=== PATIENT | female | born 1975 | race Caucasian/White ===

== ENCOUNTER 2016-11-24 17:53 | Emergency (ER) | payer BC ==
[~2016-11-24] VITALS: Ht 157.5 cm; Wt 44.5 kg
[~2016-11-24 17:53] MED LIST: ESOM40CA PO; HYDR-552 PO
--- NOTE | 2016-11-24 18:58 | NUR ---
PT TRANSFERED TO ER BED 12. ASSUME PT CARE. HERE FOR DIFFUSE ABDOMINAL PAIN W/ N/V/D X 1 WEEK AND WORST TODAY. HX OF CERVICAL AND COLON CANCER. SBO AND HAD SX 3 WEEKS AGO. GOWNED AND PLACED ON MONITOR. AWAITING MD HANNAH.
[2016-11-24] MEDS ORDERED: IV NS 0.9% 1,000 ML BAG IV ONE (19:00)
--- NOTE | 2016-11-24 19:00 | NUR ---
BEADWORKER AT BEDSIDE FOR BLOOD DRAW.
[2016-11-24 19:05] LABS: BASOPHILS % (AUTO) 1.1 % (0.0-2.0); EOSINOPHILS # (AUTO) 0.2 /CMM (0.0-0.7); EOSINOPHILS % (AUTO) 6.6 % (0.0-6.0); HEMATOCRIT 35 % (33-45); HEMOGLOBIN 10.9 g/dL (11.5-14.8); LYMPHOCYTES # (AUTO) 1.4 /CMM (0.8-4.8); LYMPHOCYTES % (AUTO) 38.8 % (20.0-44.0); MEAN CORPUSCULAR HEMOGLOBIN 26 PG (26.0-33.0); MEAN CORPUSCULAR HGB CONC 31 g/dl (31.0-36.0); MEAN CORPUSCULAR VOLUME 83 fL (82-100); MONOCYTES # (AUTO) 0.2 /CMM (0.1-1.30); MONOCYTES % (AUTO) 6.6 % (2.0-12.0); NEUTROPHILS # (AUTO) 1.9 /CMM (1.8-8.9); NEUTROPHILS % (AUTO) 46.9 % (43.0-81.0); PLATELET COUNT (AUTO) 350 /CMM (150-450); RDW COEFFICIENT OF VARIATION 12.4 (11.5-15.0); RED BLOOD CELL COUNT(AUTO) 4.18 MIL/uL (4.0-5.2); WHITE BLOOD COUNT (AUTO) 3.7 K/uL (4.3-11.0)
--- NOTE | 2016-11-24 19:05 | NUR ---
DR MILLIGAN AT BEDSIDE FOR EVAL.
[2016-11-24 19:17] LABS: CALCIUM, SERUM 9.2 mg/dL (8.5-10.1); CREATININE 1.2 mg/dL (0.6-1.3); POTASSIUM 3.8 mmol/L (3.5-5.1)
[2016-11-24 19:22] LABS: INR 0.94 (0.87-1.13); PROTHROMBIN TIME 9.8 SECS (9.5-12.7)
[2016-11-24 19:23] LABS: ALBUMIN 3.9 g/dL (3.4-5.0); BILIRUBIN,DIRECT 0.1 mg/dL (0.0-0.2); BILIRUBIN,TOTAL 0.6 mg/dL (0.2-1.0)
[2016-11-24] MEDS ORDERED: ONDANSETRON HCL/PF 4 MG/2 ML VIAL IV ONE (19:30)
[2016-11-24] MEDS ORDERED: LOPERAMIDE HCL (2 MG CAP) 2 MG CAPSULE PO ONE ×2 (19:30→19:41)
[2016-11-24] MEDS ORDERED: ONDANSETRON HCL/PF 4 MG/2 ML VIAL ONE (19:41)
[2016-11-24] MEDS ORDERED: HYDROMORPHONE 1 MG/1 ML DISP.SYRIN ONE (20:05)
--- NOTE | 2016-11-24 20:20 | NUR ---
PT STATES STILL UNABLE TO PROVIDE URINE SAMPLE AT THIS TIME.
[2016-11-24] MEDS ORDERED: HYDROMORPHONE 1 MG/1 ML DISP.SYRIN IV ONE (20:30)
[2016-11-24] MEDS ORDERED: METOCLOPRAMIDE HCL 10 MG/2 ML VIAL ONE (20:34)
--- NOTE | 2016-11-24 20:36 | NUR ---
Fide mejia in ED - 11/24/16 at 2107 by EDITH PT IS STILL C/O NAUSEA. DR MILLIGAN MADE AWARE. REGLAN 5MG IVP ORDERED. CARRIED OUT.
--- NOTE | 2016-11-24 20:50 | NUR ---
PT OT RADIOLOGY FOR ABDOMINAL CT SCAN VIA [facility].
[2016-11-24] MEDS ORDERED: METOCLOPRAMIDE HCL 10 MG/2 ML VIAL IV ONE (21:00)
[2016-11-24 21:41] LABS: APPEARANCE,URINE Clear (CLEAR); BILIRUBIN,URINE Negative (NEGATIVE); BLOOD, URINE Negative Ery/uL (NEGATIVE); COLOR,URINE Yellow (YELLOW); KETONES,URINE Negative (NEGATIVE); LEUKOCYTE ESTERASE ,URINE Trace (NEGATIVE); NITRITE, URINE Negative (NEGATIVE); PH,URINE 5.5 (5.0-8.0); PROTEIN,URINE Negative (NEGATIVE); UGLUCOSE Negative (NEGATIVE); UROBILINOGEN,URINE 0.2 EU/dL (0.2)
[2016-11-24 21:56] LABS: BACTERIA,URINE Few /HPF (None Seen); RBC,URINE 0-2 /HPF (0-2); SQUAMOUS EPITHELIAL CELL,UR Few /HPF (None Seen); WBC,URINE 2-3/HPF /HPF (0-3)
[2016-11-24 21:57] LABS: MUCUS,URINE Few /LPF (None Seen); URINE AMORPHOUS URATE Few /HPF (None Seen)
--- NOTE | 2016-11-24 21:59 | NUR ---
Patient discharged to home in stable condition. Written and verbal after care instructions given. Patient verbalizes understanding of instruction.IV removed. Catheter intact and site benign. Pressure and 4x4 applied to site. No bleeding noted.
[2016-11-24 22:00] VITALS: BP 98/62
== END 2016-11-24 22:01 | disposition home or self-care (01) ==
LOC: ER 17:59
DX: K56.7 Ileus, unspecified (principal); E86.0 Dehydration; D64.9 Anemia, unspecified; Z85.038 Personal history of other malignant neoplasm of large intestine; Z85.41 Personal history of malignant neoplasm of cervix uteri; Z90.49 Acquired absence of other specified parts of digestive tract; Z90.710 Acquired absence of both cervix and uterus
CPT/HCPCS: 36415; 72128-TC; 80048-TC; 80076-TC; 81000-TC; 83690-TC; 85025-TC; 85730-TC; A4606; J1170; J2405; J7030; Z7610

== ENCOUNTER 2017-07-24 17:27 | Inpatient (IN) | payer BC, MEDICAID ==
[~2017-07-24] VITALS: Ht 157.5 cm; Wt 54.4 kg
--- NOTE | 2017-07-24 18:00 | NUR ---
42 YO FEMALE BB SELF. PATIENT IS ALERT AND ORIENTED X 3, C/O LEFT LQ PAIN X3 DAYS. PATIENT AMBULATED TO ER BED WITH STEADY GAIT, SKIN WARM AND DRY, RESP EVEN AND UNLABORED. PATIENT GOWNED,PLACED ON MATERIAL PLANNER, AWAITING ORDERS FROM PROVIDER
[2017-07-24] MEDS ORDERED: MORPHINE SULFATE INJ 4 MG/ML DISP.SYRIN ONE ×2 (18:24→21:30)
[2017-07-24] MEDS ORDERED: ONDANSETRON HCL/PF 4 MG/2 ML VIAL ONE (18:25)
[2017-07-24] MEDS ORDERED: MORPHINE SULFATE INJ 2 MG/ML DISP.SYRIN IV ONE ×2 (18:30→21:30)
[2017-07-24] MEDS ORDERED: ONDANSETRON 4 MG TAB.RAPDIS PO ONE (18:30)
[2017-07-24] MEDS ORDERED: IV NS 0.9% 1,000 ML BAG IV ONE (18:30)
[2017-07-24 18:52] LABS: BASOPHILS # (AUTO) 0.2 /CMM (0.0-0.2); BASOPHILS % (AUTO) 3.1 % (0.0-2.0); EOSINOPHILS % (AUTO) 1.3 % (0.0-6.0); HEMATOCRIT 35 % (33-45); HEMOGLOBIN 11.4 g/dL (11.5-14.8); LYMPHOCYTES # (AUTO) 2.1 /CMM (0.8-4.8); LYMPHOCYTES % (AUTO) 38.1 % (20.0-44.0); MEAN CORPUSCULAR HGB CONC 33 g/dl (31.0-36.0); MEAN CORPUSCULAR VOLUME 82 fL (82-100); MONOCYTES # (AUTO) 0.3 /CMM (0.1-1.30); MONOCYTES % (AUTO) 5.9 % (2.0-12.0); NEUTROPHILS # (AUTO) 2.9 /CMM (1.8-8.9); NEUTROPHILS % (AUTO) 51.6 % (43.0-81.0); PLATELET COUNT (AUTO) 251 /CMM (150-450); RDW COEFFICIENT OF VARIATION 12.6 (11.5-15.0); RED BLOOD CELL COUNT(AUTO) 4.21 MIL/uL (4.0-5.2); WHITE BLOOD COUNT (AUTO) 5.6 K/uL (4.3-11.0)
[2017-07-24 19:21] LABS: ALBUMIN 3.3 g/dL (3.4-5.0); BILIRUBIN,DIRECT 0.1 mg/dL (0.0-0.2); BILIRUBIN,TOTAL 0.4 mg/dL (0.2-1.0); POTASSIUM 3.8 mmol/L (3.5-5.1); TOTAL PROTEIN, SERUM 7.3 g/dL (6.4-8.2)
[2017-07-24] MEDS ORDERED: IOHEXOL-300 100 ML VIAL IV ONE (19:55)
[2017-07-24] MEDS ORDERED: IV NS 0.9% 250 ML IV ONE (19:55)
--- NOTE | 2017-07-24 20:23 | NUR ---
PT TO CT
[2017-07-24 20:36] LABS: APPEARANCE,URINE CLEAR (CLEAR); BILIRUBIN,URINE NEGATIVE (NEGATIVE); BLOOD, URINE NEGATIVE Ery/uL (NEGATIVE); COLOR,URINE YELLOW (YELLOW); KETONES,URINE NEGATIVE (NEGATIVE); LEUKOCYTE ESTERASE ,URINE NEGATIVE (NEGATIVE); NITRITE, URINE NEGATIVE (NEGATIVE); PH,URINE 5.5 (5.0-8.0); PROTEIN,URINE NEGATIVE (NEGATIVE); UGLUCOSE NEGATIVE (NEGATIVE); UROBILINOGEN,URINE 0.2 EU/dL (0.2)
--- NOTE | 2017-07-24 22:22 | NUR ---
Patient is resting comfortably in bed. VSS. No S/S of distress noted in pt.
--- NOTE | 2017-07-24 23:39 | NUR ---
REPORT GIVEN TO PRIYA JIN FOR NIKITA.
[2017-07-25 00:05] VITALS: BP 119/73
--- NOTE | 2017-07-25 00:05 | NUR ---
MS RN ADMITTING NOTES: ADMITTED A 42 YEAR OLD FEMALE PATIENT WHO WAS BROUGHT TO ER BY FOR SEVERE LEFT SIDED ABDOMINAL PAIN, WHICH SHE STATES SHE HAS BEEN EXPERIENCING FOR 3 DAYS ALREADY. PATIENT WAS DIAGNOSED WITH ILEUS FROM THE CT ABDOMEN AND PELVIS. PATIENT WAS BROUGHT TO MS FLOOR VIA GURGURJIT, AOX4, ON ROOM AIR, BREATHING EVEN AND UNLABORED. APPEARS CALM, BUT STATES THAT SHE HAS SHARP, "PULLING" PAIN OVER UPPER AND LOWER ANTERIOR LEFT SIDE OF ABDOMEN, WHICH INTERMITTENTLY COMES AND GOES, AND RADIATES TO HER LEFT FLANK, NOW SCALED AT 8-9/10. NOTED HYPOACTIVE BOWEL SOUNDS. PER PATIENT, SHE IS ABLE TO PASS GAS AND HER LAST BM WAS 07/24/2017 AM, AND ACCDG TO HER, IT WAS SOFT TO FORMED. ABDOMEN IS TENDER, SOFT AND NON DISTENDED. NOTED PATIENT TO BE GUARDING OVER HER LEFT ABDOMEN. DENIES N/V. PIV OVER RAC G 20 INTACT AND PATENT TO FLUSH. PROVIDED FOR COMFORT AND SAFETY. ADMITTING CARE DONE, PROVIDED FOR COMFORT AND SAFETY, BED IN LOWEST AND LOCKED POSITION, SIDERAILS UP X 3, CALL LIGHT WITHIN REACH. WILL CONT TO MONITOR.
[2017-07-25] MEDS ORDERED: ALPR0.25 PO (00:29)
[2017-07-25] MEDS ORDERED: ACETAMINOPHEN 325 MG TABLET PO PRN (00:30)
[2017-07-25] MEDS ORDERED: Z GUARD REMEDY 2 OZ OINT TP PRN (00:30)
[2017-07-25] MEDS: METOCLOPRAMIDE HCL 10 MG/2 ML VIAL IV SCH ×4 (00:30→12:51)
--- NOTE | 2017-07-25 00:30 | NUR ---
RN NOTES: NGT TO LIS WAS ORDERED FOR PATIENT, HOWEVER, PATIENT REFUSED. RISKS AND BENEFITS EXPLAINED TO PATIENT, HOWEVER, SHE IS STILL REFUSING. KAYKAY URBINA INFORMED.
--- NOTE | 2017-07-25 00:40 | NUR ---
RN NOTES: CARLITOS COHEN ARMATURE REPAIRER AT BEDSIDE TO ASSESS PATIENT.
[2017-07-25] MEDS: HYDROMORPHONE INJ 2 MG/ML DISP.SYRIN IV PRN ×7 (00:44→21:16)
[2017-07-25] MEDS: PANTOPRAZOLE 40 MG VIAL IV SCH ×2 (00:49→08:12)
[2017-07-25] MEDS: IV D5/0.45 NACL 1,000 ML IV SCH ×2 (00:49→09:39)
[2017-07-25] MEDS ORDERED: ESTR-7 PO (01:13)
[2017-07-25] MEDS ORDERED: LORAZEPAM INJ 2 MG/ML VIAL IV PRN (01:30)
--- NOTE | 2017-07-25 01:34 | NUR ---
RN NOTES: METOCLOPRAMIDE IV NOT AVAILABLE IN FLOOR, OR ON ANY OTHER FLOOR, ALSO CHECKED WITH NURSING SUP, NO METOCLOPRAMIDE AVAILABLE TONIGHT, INFORMED CARLITOS COHEN BUSINESS SYSTEMS DEVELOPER. PER BUSINESS SYSTEMS DEVELOPER, REGLAN WAS ORDERED TO HELP WITH GASTRIC MOTILITY. ZOFRAN 4 MG IV PRN Q 6 HRS ADDED TO ORDERS. NOTED AND CARRIED OUT.
[2017-07-25 04:08] VITALS: BP 104/73
--- NOTE | 2017-07-25 04:08 | NUR ---
RN NOTES: PATIENT COMPLAINED OF 8/10 THROBBING PAIN OVER LEFT SIDE OF ABDOMEN. ADMINISTERED DILAUDID 1 MG IV. WILL CONT TO MONITOR.
--- NOTE | 2017-07-25 06:53 | NUR ---
MS RN CLOSING NOTES: PATIENT IN BED, AOX4, ON ROOM AIR, BREATHING EVEN AND UNLABORED. APPEARS CALM, BUT STILL COMPLAINS OF 7/10 PAIN OVER LEFT SIDE OF ABDOMEN. NO N/V NOTED THROUGH SHIFT. PIV OVER RAC G 20 INTACT AND PATENT, INFUSING WELL WITH D51/2 NS RUNNING AT 100 ML/HR. PROVIDED FOR COMFORT AND SAFETY. BED IN LOWEST AND LOCKED POSITION, SIDERAILS UP X3, CALL LIGHT WITHIN REACH. MAINTAINED ON NPO. WILL ENDORSE TO AM RN FOR NIKITA.
--- NOTE | 2017-07-25 07:25 | NUR ---
RN OPEN NOTES RECEIVED REPORT FROM RESEARCH PROGRAM MANAGER RN. PATIENT IS IN BED, ALERT AND ORIENTED TO NAME, PLACE AND TIME. NO SIGNS AND SYMPTOMS OF DISTRESS. LLQ PAID WITH HEADACHE. BED IN LOW POSITION, LOCKED AND TWO SIDE RAILS ARE UP. CALL LIGHT WITHIN REACH FOR SAFETY. WILL CONTINUE TO MONITOR AND ASSESS PATIENT
[2017-07-25 08:00] VITALS: BP 108/68
--- NOTE | 2017-07-25 08:50 | NUR ---
SPOKE WITH MANUFACTURING SYSTEMS ENGINEER GISELLE REGARDING SUPPOSITORY FOR HEADACHE. PER MANUFACTURING SYSTEMS ENGINEER, HOLD OFF FOR NOW. APPLIED ICE ON FOREHEAD ONLY
[2017-07-25 11:47] LABS: BASOPHILS % (AUTO) 0.6 % (0.0-2.0); EOSINOPHILS % (AUTO) 1.5 % (0.0-6.0); HEMATOCRIT 34 % (33-45); LYMPHOCYTES # (AUTO) 1.6 /CMM (0.8-4.8); LYMPHOCYTES % (AUTO) 39.9 % (20.0-44.0); MEAN CORPUSCULAR HGB CONC 32 g/dl (31.0-36.0); MEAN CORPUSCULAR VOLUME 86 fL (82-100); MONOCYTES # (AUTO) 0.2 /CMM (0.1-1.30); PLATELET COUNT (AUTO) 227 /CMM (150-450); RDW COEFFICIENT OF VARIATION 14.1 (11.5-15.0); RED BLOOD CELL COUNT(AUTO) 3.98 MIL/uL (4.0-5.2); WHITE BLOOD COUNT (AUTO) 3.9 K/uL (4.3-11.0)
[2017-07-25 11:54] LABS: CALCIUM, SERUM 8.4 mg/dL (8.5-10.1)
[2017-07-25] MEDS: METRONIDAZOLE 500MG/ NS 100ML 500 MG in PREMIX 1 EA IV SCH ×2 (12:40→21:15)
[2017-07-25] MEDS: LEVOFLOXACIN 750 MG /D5W 150ML 750 MG in PREMIX 1 EA IV SCH (13:51)
[2017-07-25] MEDS: ONDANSETRON HCL/PF 4 MG/2 ML VIAL IV PRN ×2 (14:29→23:15)
[2017-07-25] MEDS ORDERED: NA PHOS,M-B/NA PHOS,DI-BA 1 EA ENEMA RC ONE (16:00)
[2017-07-25 16:03] VITALS: BP 104/71
[2017-07-25] MEDS: ALPRAZOLAM 0.25 MG TABLET PO PRN (16:13)
--- NOTE | 2017-07-25 19:11 | NUR ---
RN CLOSING NOTES PATIENT IS IN BED, AWAKE AND ALERT TO NAME, PLACE AND TIME. ALL PATIENT NEEDS ANTICIPATED AND ATTENDED FOR. BED IN LOW POSITION, LOCKED AND TWO SIDE RAILS ARE UP. CALL LIGHT WITHIN REACH FOR SAFETY. NO NEW CHANGES DURING THE SHIFT. NO SIGNS AND SYMPTOMS OF DISTRESS. WILL ENDORSE TO FAST FOOD RESTAURANT MANAGER NURSE
[2017-07-25 20:00] VITALS: BP 100/65
[2017-07-26] MEDS: IV D5/0.45 NACL 1,000 ML IV SCH ×3 (00:11→23:44)
[2017-07-26] MEDS: HYDROMORPHONE INJ 2 MG/ML DISP.SYRIN IV PRN ×5 (00:11→16:30)
[2017-07-26] MEDS: METOCLOPRAMIDE HCL 10 MG/2 ML VIAL IV SCH ×5 (00:22→23:44)
[2017-07-26] MEDS: METRONIDAZOLE 500MG/ NS 100ML 500 MG in PREMIX 1 EA IV SCH ×3 (05:13→21:09)
[2017-07-26] MEDS: ONDANSETRON HCL/PF 4 MG/2 ML VIAL IV PRN (05:15)
[2017-07-26 06:06] LABS: BASOPHILS % (AUTO) 0.9 % (0.0-2.0); EOSINOPHILS % (AUTO) 1.7 % (0.0-6.0); HEMATOCRIT 30 % (33-45); HEMOGLOBIN 9.7 g/dL (11.5-14.8); LYMPHOCYTES # (AUTO) 1.2 /CMM (0.8-4.8); LYMPHOCYTES % (AUTO) 42.8 % (20.0-44.0); MEAN CORPUSCULAR HGB CONC 33 g/dl (31.0-36.0); MEAN CORPUSCULAR VOLUME 83 fL (82-100); MONOCYTES # (AUTO) 0.3 /CMM (0.1-1.30); MONOCYTES % (AUTO) 10.6 % (2.0-12.0); NEUTROPHILS # (AUTO) 1.2 /CMM (1.8-8.9); PLATELET COUNT (AUTO) 208 /CMM (150-450); RDW COEFFICIENT OF VARIATION 13.5 (11.5-15.0); RED BLOOD CELL COUNT(AUTO) 3.55 MIL/uL (4.0-5.2); WHITE BLOOD COUNT (AUTO) 2.8 K/uL (4.3-11.0)
--- NOTE | 2017-07-26 06:10 | NUR ---
MS RN NOTES AWAKE & RESPONSIVE. NOT IN ANY DISTRESS. NO SOB NOTED. DENIES ANY PAIN OR DISCOMFORT AT THIS TIME. WITH IVF INFUSING WELL. MONITORED ACCORDINGLY. CALL LIGHT WITHIN REACH. BED IN LOWEST POSITION. SR UP X 2 FOR SAFETY. WILL ENDORSE TO NEXT SHIFT.
[2017-07-26 06:23] LABS: CALCIUM, SERUM 8.2 mg/dL (8.5-10.1); CREATININE 0.9 mg/dL (0.6-1.3); MAGNESIUM 1.7 mg/dL (1.8-2.4); PHOSPHORUS 4.5 mg/dL (2.5-4.9); POTASSIUM 3.7 mmol/L (3.5-5.1)
[2017-07-26 06:29] LABS: THYROID STIMULATING HORMONE 3.25 uIU/mL (0.358-3.74)
--- NOTE | 2017-07-26 07:25 | NUR ---
RN OPEN NOTES RECEIVED REPORT FROM CLINICAL ENGINEERING MANAGER NURSE. PATIENT IS IN BED. PATIENT IS ALERT AND ORIENTED TO NAME, PLACE AND TIME. NO SIGNS AND SYMPTOMS OF DISTRESS. PAIN 7/10 ABDOMINAL. BED IN LOW POSITION, LOCKED AND TWO SIDE RAILS ARE UP. CALL LIGHT WITHIN REACH. WILL CONTINUE TO ASSESS AND MONITOR PATIENT
[2017-07-26 08:00] VITALS: BP 105/69
[2017-07-26] MEDS: PANTOPRAZOLE 40 MG VIAL IV SCH (08:06)
[2017-07-26] MEDS: DOCUSATE SODIUM 100 MG CAPSULE PO SCH ×2 (10:52→16:29)
[2017-07-26] MEDS: LEVOFLOXACIN 750 MG /D5W 150ML 750 MG in PREMIX 1 EA IV SCH (10:59)
[2017-07-26] MEDS ORDERED: MAGNESIUM OXIDE 400 MG TABLET PO ONE (11:00)
[2017-07-26] MEDS ORDERED: BISACODYL SUPP (10 MG) 10 MG/SUPP.RECT SUPP.RECT RC ONE (11:00)
[2017-07-26 16:00] VITALS: BP 111/74
[2017-07-26] MEDS ORDERED: HYDROCODONE/APAP 5/325MG 1 EACH TABLET PO PRN (18:00)
--- NOTE | 2017-07-26 18:52 | NUR ---
RN CLOSING NOTES PATIENT IS IN BED, AWAKE AND ALERT TO NAME, PLACE AND TIME. ALL PATIENT NEEDS ANTICIPATED AND ATTENDED FOR. BED IN LOW POSITION, LOCKED AND TWO SIDE RAILS ARE UP. CALL LIGHT WITHIN REACH FOR SAFETY. NO NEW CHANGES DURING THE SHIFT. NO SIGNS AND SYMPTOMS OF DISTRESS. WILL ENDORSE TO COUNTRY MANAGER NURSE
--- NOTE | 2017-07-26 19:30 | NUR ---
MS RN NOTE: PATIENT RESTING IN BED, NO ACUTE DISTRESS NOTED. BREATHING EVEN AND UNLABORED, NO SOB NOTED. IV TO RAC IN PLACE, INFUSING D5 1/2 NS AT 75ML/HR. BED LOCKED AND IN LOWEST POSITION, CALL LIGHT IN REACH. WILL CONTINUE TO MONITOR.
[2017-07-26] MEDS: HYDROCODONE/APAP 10/325MG 1 EA TABLET PO PRN (20:02)
--- NOTE | 2017-07-26 20:15 | NUR ---
MS RN NOTE: PATIENT COMPLAINS OF ABD PAIN 12/28, NORCO 10/325MG 1 TAB ORAL GIVEN PER MD ORDER. WILL CONTINUE TO MONITOR.
[2017-07-26] MEDS: ALPRAZOLAM 0.25 MG TABLET PO PRN (21:10)
--- NOTE | 2017-07-26 23:50 | NUR ---
MS RN NOTE: PATIENT COMPLAINS OF ABD PAIN 10/27, NORCO 5/325MG 1 TAB ORAL GIVEN PER MD ORDER. WILL CONTINUE TO MONITOR.
[2017-07-27] MEDS: HYDROCODONE/APAP 10/325MG 1 EA TABLET PO PRN (03:14)
--- NOTE | 2017-07-27 03:20 | NUR ---
MS RN NOTE: PATIENT COMPLAINS OF ABD PAIN 12/28, NORCO 10/325MG 1 TAB ORAL GIVEN PER MD ORDER. WILL CONTINUE TO MONITOR.
[2017-07-27] MEDS: METRONIDAZOLE 500MG/ NS 100ML 500 MG in PREMIX 1 EA IV SCH ×3 (05:42→21:13)
--- NOTE | 2017-07-27 06:15 | NUR ---
MS RN NOTE: PATIENT RESTING IN BED, NO ACUTE DISTRESS NOTED. BREATHING EVEN AND UNLABORED, NO SOB NOTED. IV TO RAC IN PLACE, INFUSING D5 1/2 NS AT 75ML/HR. BED LOCKED AND IN LOWEST POSITION, CALL LIGHT IN REACH. WILL ENDORSE TO DAY NURSE TO CONTINUE WITH PLAN OF CARE.
[2017-07-27] MEDS: METOCLOPRAMIDE HCL 10 MG/2 ML VIAL IV SCH ×4 (06:30→23:49)
--- NOTE | 2017-07-27 07:30 | NUR ---
MS/RN Patient received Patient received from power and recovery shift engineer. A/OX4, vital signs within normal range, complaining of pain. Pharmacy called to snitch dilaudid to other medication as out of stock. Per Yariel, will change to fentanyl. Call light within reach, will continue to monitor and ensure safety.
[2017-07-27 07:56] VITALS: BP 92/60
[2017-07-27 08:00] VITALS: BP 92/64
--- NOTE | 2017-07-27 08:00 | NUR ---
MS/RN Fentanyl Dilaudid changed to fentanyl, first dose administered for abdominal pain 11/27, will monitor effectiveness.
[2017-07-27] MEDS: DOCUSATE SODIUM 100 MG CAPSULE PO SCH ×2 (08:01→18:06)
[2017-07-27] MEDS: PANTOPRAZOLE 40 MG VIAL IV SCH (08:01)
[2017-07-27] MEDS: FENTANYL PF 100MCG/2ML AMPUL IV PRN ×5 (08:01→21:13)
--- NOTE | 2017-07-27 10:50 | NUR ---
MS/RN S/B David Mas Seen by David Mas - labs ordered for this morning to recheck WBC.
[2017-07-27] MEDS ORDERED: BISACODYL SUPP (10 MG) 10 MG/SUPP.RECT SUPP.RECT RC ONE (11:00)
[2017-07-27] MEDS: LEVOFLOXACIN 750 MG /D5W 150ML 750 MG in PREMIX 1 EA IV SCH (11:28)
--- NOTE | 2017-07-27 11:30 | NUR ---
MS/RN Fentanyl Fentanyl 60mcg administered for abdominal pain, scale 8/10.
[2017-07-27 12:08] LABS: BASOPHILS # (AUTO) 0.1 /CMM (0.0-0.2); BASOPHILS % (AUTO) 2.4 % (0.0-2.0); EOSINOPHILS % (AUTO) 2.3 % (0.0-6.0); HEMATOCRIT 30 % (33-45); LYMPHOCYTES # (AUTO) 1.2 /CMM (0.8-4.8); LYMPHOCYTES % (AUTO) 34.6 % (20.0-44.0); MEAN CORPUSCULAR HGB CONC 33 g/dl (31.0-36.0); MEAN CORPUSCULAR VOLUME 83 fL (82-100); MONOCYTES # (AUTO) 0.3 /CMM (0.1-1.30); MONOCYTES % (AUTO) 8.3 % (2.0-12.0); NEUTROPHILS # (AUTO) 1.8 /CMM (1.8-8.9); NEUTROPHILS % (AUTO) 52.4 % (43.0-81.0); PLATELET COUNT (AUTO) 241 /CMM (150-450); RED BLOOD CELL COUNT(AUTO) 3.61 MIL/uL (4.0-5.2); WHITE BLOOD COUNT (AUTO) 3.5 K/uL (4.3-11.0)
[2017-07-27 12:19] LABS: CALCIUM, SERUM 8.1 mg/dL (8.5-10.1); CREATININE 1.1 mg/dL (0.6-1.3); POTASSIUM 3.6 mmol/L (3.5-5.1)
[2017-07-27] MEDS: ALPRAZOLAM 0.25 MG TABLET PO PRN ×2 (13:16→22:12)
[2017-07-27 16:00] VITALS: BP 103/70
--- NOTE | 2017-07-27 18:00 | NUR ---
MS/RN Pain Complaining of 8/10 abdominal pain. Fentanyl administered, will monitor effectiveness.
[2017-07-27] MEDS: IV D5/0.45 NACL 1,000 ML IV PRN (18:06)
--- NOTE | 2017-07-27 18:15 | NUR ---
MS/RN End note Patient remains in stable condition, with pain medication being administered every 3 hours. Vital signs stable and within normal range for patient. All needs attended, call light within reach. Will endorse to shift supervisor film processing.
[2017-07-27 20:00] VITALS: BP 108/71
--- NOTE | 2017-07-27 21:15 | NUR ---
MS RN NOTE: PATIENT COMPLAINS OF ABD PAIN 12/28, FENTANYL 60MCG IV GIVEN PER MD ORDER. WILL CONTINUE TO MONITOR.
--- NOTE | 2017-07-27 22:20 | NUR ---
MS RN NOTE: PATIENT COMPLAINS OF ANXIETY, XANAX 0.25MG ORAL GIVEN PER MD ORDER WILL CONTINUE TO MONITOR.
[2017-07-28] MEDS: FENTANYL PF 100MCG/2ML AMPUL IV PRN ×5 (00:29→14:58)
--- NOTE | 2017-07-28 00:45 | NUR ---
MS RN NOTE: PATIENT COMPLAINS OF ABD PAIN 12/28, FENTANYL 60MCG IV GIVEN PER MD ORDER. WILL CONTINUE TO MONITOR.
--- NOTE | 2017-07-28 04:15 | NUR ---
MS RN NOTE: PATIENT COMPLAINS OF ABD PAIN 12/28, FENTANYL 60MCG IV GIVEN PER MD ORDER. WILL CONTINUE TO MONITOR.
[2017-07-28] MEDS: METRONIDAZOLE 500MG/ NS 100ML 500 MG in PREMIX 1 EA IV SCH (04:19)
--- NOTE | 2017-07-28 06:10 | NUR ---
MS RN NOTE: PATIENT RESTING IN BED, NO ACUTE DISTRESS NOTED. BREATHING EVEN AND UNLABORED, NO SOB NOTED. IV TO RAC IN PLACE. BED LOCKED AND IN LOWEST POSITION, CALL LIGHT IN REACH. WILL ENDORSE TO DAY NURSE TO CONTINUE WITH PLAN OF CARE. Addendum: 07/28/17 at 0659 by OSCAR ESCALANTE RN IV TO RAC IN PLACE, INFUSING D5 1/2 NS AT 75ML/HR.
[2017-07-28] MEDS: METOCLOPRAMIDE HCL 10 MG/2 ML VIAL IV SCH (06:12)
[2017-07-28 06:46] LABS: BASOPHILS % (AUTO) 0.5 % (0.0-2.0); EOSINOPHILS % (AUTO) 2.2 % (0.0-6.0); HEMATOCRIT 30 % (33-45); HEMOGLOBIN 9.9 g/dL (11.5-14.8); LYMPHOCYTES # (AUTO) 1.5 /CMM (0.8-4.8); LYMPHOCYTES % (AUTO) 35.7 % (20.0-44.0); MEAN CORPUSCULAR HGB CONC 34 g/dl (31.0-36.0); MEAN CORPUSCULAR VOLUME 83 fL (82-100); MONOCYTES # (AUTO) 0.4 /CMM (0.1-1.30); NEUTROPHILS # (AUTO) 2.3 /CMM (1.8-8.9); NEUTROPHILS % (AUTO) 52.6 % (43.0-81.0); PLATELET COUNT (AUTO) 237 /CMM (150-450); RDW COEFFICIENT OF VARIATION 13.8 (11.5-15.0); RED BLOOD CELL COUNT(AUTO) 3.57 MIL/uL (4.0-5.2); WHITE BLOOD COUNT (AUTO) 4.3 K/uL (4.3-11.0)
[2017-07-28 08:00] VITALS: BP 103/66
[2017-07-28] MEDS: DOCUSATE SODIUM 100 MG CAPSULE PO SCH ×2 (08:00→17:00)
[2017-07-28] MEDS: PANTOPRAZOLE 40 MG VIAL IV SCH (08:00)
--- NOTE | 2017-07-28 08:00 | NUR ---
MS RN NOTES PATIENT IN BED RESTING NO SOB OR ACUTE DISTRESS NOTED. PATIENT ALERT, ORIENTED X3. PERIPHERAL IV INTACT PATENT. BED IN LOW LOCKED POSITION. CALL LIGHT WITHIN REACH. WILL CONTINUE TO MONITOR.
[2017-07-28] MEDS: ALPRAZOLAM 0.25 MG TABLET PO PRN (09:02)
[2017-07-28] MEDS: IV D5/0.45 NACL 1,000 ML IV PRN (09:28)
[2017-07-28] MEDS ORDERED: METOCLOPRAMIDE HCL 10 MG TABLET PO SCH (12:00)
[2017-07-28] MEDS ORDERED: LEVOFLOXACIN (750 MG) 750 MG TABLET PO SCH (12:00)
--- NOTE | 2017-07-28 12:00 | NUR ---
MS RN NOTES PATIENT SEEN AND EVALUATED BY DR. ZIMMERMAN ORDERS NOTED AND CARRIED OUT.
[2017-07-28] MEDS ORDERED: METRONIDAZOLE 500 MG TABLET PO SCH (13:00)
[2017-07-28] MEDS: HYDROCODONE/APAP 10/325MG 1 EA TABLET PO PRN (13:13)
[2017-07-28 15:44] VITALS: BP 103/66
--- NOTE | 2017-07-28 16:30 | NUR ---
MS RN NOTES CALLED DR. ZIMMERMAN ORDERS OBTAINED TO DISCHARGE PATIENT PER PATIENTS REQUEST SHE UNABLE TO WAIT ANY LONGER. PER DR. ZIMMERMAN OK TO DISCHARGE PATIENT STABLE. PRESCRIPTION PROVIDED FROM MORNING.
--- NOTE | 2017-07-28 17:00 | NUR ---
MS RN NOTES PATIENT DISCHARGED HOME WITH IN STABLE CONDITION. MD AWARE OF ABNORMAL LABS. NO SOB OR ACUTE DISTRESS NOTED. PATIENT STATES SHE HAS PAIN MEDICATION AT HOME TO CONTROL HER PAIN. DISCHARGE TEACHING PROVIDED, VERBALIZED UNDERSTANDING. PRESCRIPTION GIVEN TO PATIENT ALSO FAXED TO HER PHARMACY. EDUCATION PROVIDED TO PATIENT AND ABOUT MEDICATIONS. PERIPHERAL IV REMOVED. ID BAND ALSO REMOVED. ALL BELONGINGS ACCOUNTED FOR, BELONGING LIST SIGNED. PATIENT ESCORTED TO CAR BY CLINICAL LABORATORY AIDE. LEFT WITH .
== END 2017-07-28 17:00 | disposition home or self-care (01) | DRG 248 ==
LOC: ER 17:28 → MEDSG2 23:29
PROVIDERS: ADMIT Registered Nurse; ATTEND Registered Nurse
DX: A04.9 Bacterial intestinal infection, unspecified (principal); E44.1 Mild protein-calorie malnutrition; K56.7 Ileus, unspecified; N13.30 Unspecified hydronephrosis; E88.09 Other disorders of plasma-protein metabolism, not elsewhere classified; D72.819 Decreased white blood cell count, unspecified; E83.42 Hypomagnesemia; K21.9 Gastro-esophageal reflux disease without esophagitis; Z90.49 Acquired absence of other specified parts of digestive tract; Z85.41 Personal history of malignant neoplasm of cervix uteri; Z90.710 Acquired absence of both cervix and uterus; Z92.21 Personal history of antineoplastic chemotherapy; Z92.3 Personal history of irradiation; D63.8 Anemia in other chronic diseases classified elsewhere; Z85.038 Personal history of other malignant neoplasm of large intestine; K59.00 Constipation, unspecified; F41.9 Anxiety disorder, unspecified; Z68.21 Body mass index [BMI] 21.0-21.9, adult
CPT/HCPCS: 36415; 80048-TC; 80061-TC; 80076-TC; 81000-TC; 83605-TC; 83690-TC; 83735-TC; 84100-TC; 84443-TC; 84703-TC; 85025-TC; 87081-TC; A4216; A4606; C9113; J1170; J1956; J2270; J2405; J3010; J3490; J7030; J7050; J8597; Q9967; Z7610

== ENCOUNTER 2019-02-27 21:22 | Emergency (ER) | payer MEDICAID, OTHER ==
[~2019-02-27] VITALS: Ht 154.9 cm; Wt 49.9 kg
[~2019-02-27 21:22] MED LIST changes: +ALPR0.25 PO; +ESTR-7 PO; +HYDR-4384 PO; -HYDR-552 PO
--- NOTE | 2019-02-27 21:30 | NUR ---
PT AAOX4. PT HAYDEE WHILE GROCERY SHOPPING SHE HAD AN ANXIETY ATTACK. C/O "I CANT FEEL MY LEGS AND HANDS, THEIR TINGLING". PT VERY ANXIOUS. VSS. LLQ ABD PAIN 10/10 NON RADIATING. PT PLACED ON BUILDING MAINTENANCE WORKER AND PULSE OX. AWAITING MD FOR EVAL.
[2019-02-27] MEDS ORDERED: LORAZEPAM INJ 2 MG/ML VIAL ONE (22:23)
[2019-02-27] MEDS ORDERED: LORAZEPAM INJ 2 MG/ML VIAL IM ONE (22:30)
--- NOTE | 2019-02-27 22:38 | NUR ---
Patient is resting comfortably in bed speaking on the phone. Easily aroused. VSS. no acute distress.
--- NOTE | 2019-02-27 23:19 | NUR ---
Patient discharged to home in stable condition. Written and verbal after care instructions given. Patient verbalizes understanding of instruction. pt ambulatory with a steady gait.
[2019-02-27 23:20] VITALS: BP 113/75
== END 2019-02-27 23:21 | disposition home or self-care (01) ==
LOC: ER 21:23
DX: F41.9 Anxiety disorder, unspecified (principal); Z85.038 Personal history of other malignant neoplasm of large intestine; Z85.41 Personal history of malignant neoplasm of cervix uteri; Z98.890 Other specified postprocedural states; Z90.710 Acquired absence of both cervix and uterus; Z79.899 Other long term (current) drug therapy
CPT/HCPCS: 96372; 99284; J2060

== ENCOUNTER 2019-06-20 19:16 | Inpatient (IN) | payer OTHER ==
[~2019-06-20] VITALS: Ht 162.6 cm; Wt 69.9 kg
--- NOTE | 2019-06-20 19:42 | NUR ---
BIBS. L FLANK PAIN X 3 DAYS. NAUSEA. 10/10 SHOOTING PAIN. ANXIOUS. VISUALLY UPSET AND DOES NOT WANT TO BE HERE. DENIES SOB, DIZZINESS, WEAKNESS. NO ACUTE DISTRESS NOTED. AOX4, AMBULATORY, TACHY AND HYPERTENSIVE. FAMILY AT BEDSIDE, MADE COMFORTABLE, READY FOR EVAL.
[2019-06-20] MEDS ORDERED: HYDROMORPHONE 1 MG/1 ML DISP.SYRIN ONE ×2 (19:55→22:28)
[2019-06-20] MEDS ORDERED: ONDANSETRON HCL/PF 4 MG/2 ML VIAL ONE (19:55)
[2019-06-20] MEDS ORDERED: HYDROMORPHONE INJ 2 MG/ML DISP.SYRIN IV ONE (20:00)
[2019-06-20] MEDS ORDERED: ONDANSETRON HCL/PF 4 MG/2 ML VIAL IVP ONE (20:00)
[2019-06-20] MEDS ORDERED: IV NS 0.9% 1,000 ML BAG IV ONE (20:00)
--- NOTE | 2019-06-20 20:25 | NUR ---
PT IS A HARD STICK
--- NOTE | 2019-06-20 20:33 | NUR ---
IV ACCESS OBTAINED. MEDS GIVEN AND IVF INFUSING. PT ELVIN WELL.
[2019-06-20 20:40] LABS: BASOPHILS # (AUTO) 0.1 /CMM (0.0-0.2); BASOPHILS % (AUTO) 1.2 % (0.0-2.0); EOSINOPHILS % (AUTO) 1.9 % (0.0-6.0); HEMATOCRIT 34 % (33-45); HEMOGLOBIN 10.8 g/dL (11.5-14.8); LYMPHOCYTES # (AUTO) 1.5 /CMM (0.8-4.8); LYMPHOCYTES % (AUTO) 23.4 % (20.0-44.0); MEAN CORPUSCULAR HGB CONC 32 g/dl (31.0-36.0); MEAN CORPUSCULAR VOLUME 87 fL (82-100); MONOCYTES # (AUTO) 0.3 /CMM (0.1-1.30); MONOCYTES % (AUTO) 4.6 % (2.0-12.0); NEUTROPHILS # (AUTO) 4.5 /CMM (1.8-8.9); NEUTROPHILS % (AUTO) 68.9 % (43.0-81.0); PLATELET COUNT (AUTO) 277 /CMM (150-450); RED BLOOD CELL COUNT(AUTO) 3.89 MIL/uL (4.0-5.2); WHITE BLOOD COUNT (AUTO) 6.6 K/uL (4.3-11.0)
--- NOTE | 2019-06-20 20:46 | NUR ---
PT TAKEN TO RADIOLOGY VIA [facility]
[2019-06-20 21:01] LABS: CALCIUM, SERUM 8.4 mg/dL (8.5-10.1); POTASSIUM 3.5 mmol/L (3.5-5.1)
[2019-06-20 21:07] LABS: ALBUMIN 3.1 g/dL (3.4-5.0); BILIRUBIN,DIRECT 0.1 mg/dL (0.0-0.2); BILIRUBIN,TOTAL 0.4 mg/dL (0.2-1.0); TOTAL PROTEIN, SERUM 6.6 g/dL (6.4-8.2)
--- NOTE | 2019-06-20 22:00 | NUR ---
PT REPORTS RETURN OF PAIN. PHARMACY TECHNICIAN TRAINEE AWARE
[2019-06-20] MEDS ORDERED: HYDROMORPHONE 1 MG/1 ML DISP.SYRIN IV ONE (22:30)
--- NOTE | 2019-06-20 22:44 | NUR ---
CALLED SUP FOR MS BED
[2019-06-20] MEDS ORDERED: SERT50TA PO (23:24)
[2019-06-20] MEDS ORDERED: HYDR-4354 PO (23:24)
[2019-06-20] MEDS ORDERED: ALPR0.5T PO (23:24)
--- NOTE | 2019-06-20 23:31 | NUR ---
REPORT GIVEN TO PRIYA BAEZ FOR 205-2 MS, ANDONIAN ACCEPTING
[2019-06-20 23:57] VITALS: BP 105/70
--- NOTE | 2019-06-20 23:59 | NUR ---
MS RN ADMITTING NOTES PATIENT ARRIVED ON UNIT VIA GURNEY ACCOMPANIED BY FAMILY MEMBER AND ER STAFF. STABLE ON RA WITH BREATHING EVEN AND UNLABORED, NO SOB NOTED. NO SIGNS OF ACUTE DISTRESS. A/O X 4- ABLE TO MAKE NEEDS KNOWN CLAIMS SHE IS FEELING ANXIOUS. PATIENT IS AMBULATORY. SKIN ASSESSMENT DONE. VITALS TAKEN 105/ 70 HR 66 RR 20 T 98.1 O2SAT 100%. ALL BELONGINGS ACCOUNTED FOR. SAFETY PRECAUTIONS IN PLACE WITH BED IN LOWEST POSITION, CALL LIGHT WITHIN REACH, SIDE RAILS UP X2. PATIENT ORIENTED TO ROOM AND STAFF. AWAITING ADMITTING ORDERS. WILL CONTINUE TO MONITOR.
[2019-06-21] MEDS ORDERED: ONDANSETRON HCL/PF 4 MG/2 ML VIAL IVP PRN (01:00)
[2019-06-21] MEDS: MORPHINE SULFATE INJ 2 MG/ML DISP.SYRIN IV PRN ×3 (02:45→11:48)
[2019-06-21 06:27] VITALS: BP 105/70
--- NOTE | 2019-06-21 06:28 | NUR ---
MS RN CLOSING NOTES PATIENT CURRENTLY RESTING IN BED A/O X 4. STABLE ON RA WITH BREATHING EVEN AND UNLABORED, NO SOB NOTED. NO SIGNS OF ACUTE DISTRESS. SLIGHT COMPLAINTS OF PAIN AND DISCOMFORT IN THE LEFT ABDOMINAL AREA. PATIENT REMAINED NPO THROUGHOUT THE NIGHT. IV LOCATED ON R WRIST #22 SL. SAFETY PRECAUTIONS IN PLACE WITH BED IN LOWEST POSITION, CALL LIGHT WITHIN REACH, BREAKS ON, AND SIDE RAILS UP X2. WILL ENDORSE TO ONCOMING SHIFT ABOUT NIKITA.
[2019-06-21 06:51] LABS: BASOPHILS # (AUTO) 0.1 /CMM (0.0-0.2); BASOPHILS % (AUTO) 0.9 % (0.0-2.0); EOSINOPHILS % (AUTO) 3.5 % (0.0-6.0); HEMATOCRIT 33 % (33-45); HEMOGLOBIN 10.5 g/dL (11.5-14.8); LYMPHOCYTES % (AUTO) 33.9 % (20.0-44.0); MEAN CORPUSCULAR HGB CONC 32 g/dl (31.0-36.0); MEAN CORPUSCULAR VOLUME 87 fL (82-100); MONOCYTES # (AUTO) 0.3 /CMM (0.1-1.30); MONOCYTES % (AUTO) 5.4 % (2.0-12.0); NEUTROPHILS # (AUTO) 3.3 /CMM (1.8-8.9); NEUTROPHILS % (AUTO) 56.3 % (43.0-81.0); PLATELET COUNT (AUTO) 273 /CMM (150-450); RED BLOOD CELL COUNT(AUTO) 3.77 MIL/uL (4.0-5.2); WHITE BLOOD COUNT (AUTO) 5.8 K/uL (4.3-11.0)
[2019-06-21 07:16] LABS: CALCIUM, SERUM 8.3 mg/dL (8.5-10.1); CREATININE 0.9 mg/dL (0.6-1.3); MAGNESIUM 1.8 mg/dL (1.8-2.4); POTASSIUM 3.5 mmol/L (3.5-5.1)
--- NOTE | 2019-06-21 07:40 | NUR ---
MS/RN - Assessment Patient in bed, awake, A/O x 4, no c/o n/v, abdominal pain controlled with Morphine IV, no abdominal tenderness on palpitation, no apparent distress, afebrile. Patient is currently NPO. Saline lock on the on the right wrist is patent, intact, with no signs of infiltration. Labs reviewed with no critical results. Skin is intact. Patient independent with bed mobility, ambulatory with steady gait. CT abdomen showed partial small bowel obstruction. X-ray abdomen showed limited evaluation of the small bowel due to paucity of small bowel gas. Findings concerning for partial or low grade obstruction seen on prior CT. Patient educated on plan of care. Will continue with current medical management.
[2019-06-21 08:00] VITALS: BP 105/68
[2019-06-21] MEDS ORDERED: IV D5/0.45 NACL 1,000 ML IV PRN (09:30)
[2019-06-21] MEDS ORDERED: LORAZEPAM INJ 2 MG/ML VIAL IV ONE (09:30)
[2019-06-21 13:39] LABS: APPEARANCE,URINE CLEAR (CLEAR); BILIRUBIN,URINE NEGATIVE (NEGATIVE); BLOOD, URINE NEGATIVE Ery/uL (NEGATIVE); COLOR,URINE YELLOW (YELLOW); KETONES,URINE NEGATIVE (NEGATIVE); LEUKOCYTE ESTERASE ,URINE NEGATIVE (NEGATIVE); NITRITE, URINE NEGATIVE (NEGATIVE); PROTEIN,URINE NEGATIVE (NEGATIVE); UGLUCOSE NEGATIVE (NEGATIVE); UROBILINOGEN,URINE 0.2 EU/dL (0.2)
--- NOTE | 2019-06-21 13:55 | NUR ---
MS/RN - AMA Patient left against medical advice, stated "I need to go home now because of family emergency." Explained to pt the risks and consequences of leaving AMA. Patient verbalized understanding and is continuing with the decision to leave AMA. Advised patient to follow up with her primary medical doctor as soon as possible and to return to the nearest ER for any chest pain, vomiting, generalized weakness, syncope, active bleeding or any emergent condition. Patient signed discharge/AMA form and copies were provided. Patient refused photo to be taken, skin is intact. Patient is alert and oriented x 4, ambulatory, afebrile, vitals stable, denies abdominal pain, no c/o n/v. All belongings with patient and she deny any missing items. PIV removed on the right wrist with catheter tip intact, no redness, no swelling noted at the site. Accompanied to the lobby and transported by private car.
[2019-06-21] MEDS ORDERED: HYDROCODONE/APAP 10/325MG 1 EA TABLET PO SCH (14:00)
[2019-06-21] MEDS ORDERED: HYDROCODONE/APAP 5/325MG 1 EACH TABLET PO PRN (14:00)
[2019-06-21] MEDS ORDERED: ALPRAZOLAM 0.25 MG TABLET PO SCH (14:00)
[2019-06-21] MEDS ORDERED: ESTROGEN,CON/MPROGEST0.3-1.5MG 1 EACH TABLET PO SCH (22:00)
[2019-06-22] MEDS ORDERED: PANTOPRAZOLE 40 MG TABLET.DR PO SCH (07:30)
[2019-06-22] MEDS ORDERED: SERTRALINE HCL 50 MG TABLET PO SCH (09:00)
== END 2019-06-21 14:00 | disposition left against medical advice (07) | DRG 247 ==
LOC: ER 19:30 → MEDSG2 22:50
PROVIDERS: ADMIT Registered Nurse; ATTEND Registered Nurse
DX: K56.600 Partial intestinal obstruction, unspecified as to cause (principal); E88.09 Other disorders of plasma-protein metabolism, not elsewhere classified; E66.9 Obesity, unspecified; F41.9 Anxiety disorder, unspecified; Z85.41 Personal history of malignant neoplasm of cervix uteri; Z85.038 Personal history of other malignant neoplasm of large intestine; Z90.710 Acquired absence of both cervix and uterus; Z85.048 Personal history of other malignant neoplasm of rectum, rectosigmoid junction, and anus; Z92.3 Personal history of irradiation; Z92.21 Personal history of antineoplastic chemotherapy; Z90.49 Acquired absence of other specified parts of digestive tract; D63.8 Anemia in other chronic diseases classified elsewhere; K21.9 Gastro-esophageal reflux disease without esophagitis; Z68.26 Body mass index [BMI] 26.0-26.9, adult; Z98.0 Intestinal bypass and anastomosis status
CPT/HCPCS: 36415; 74018; 80048-TC; 80061-TC; 80076-TC; 81000-TC; 83690-TC; 83735-TC; 84100-TC; 84703-TC; 85025-TC; 85730-TC; 87081-TC; G0378; J1170; J2060; J2270; J2405; J3490; J7030

== ENCOUNTER 2019-12-09 14:37 | Inpatient (IN) | payer OTHER ==
[~2019-12-09] VITALS: Ht 157.5 cm; Wt 61.2 kg
[~2019-12-09 14:37] MED LIST changes: +ALPR0.5T PO; +HYDR-4354 PO; +SERT50TA PO
[2019-12-09] MEDS ORDERED: ONDANSETRON HCL/PF 4 MG/2 ML VIAL ONE (15:46)
[2019-12-09] MEDS ORDERED: MORPHINE SULFATE INJ 4 MG/ML DISP.SYRIN ONE (15:47)
[2019-12-09] MEDS ORDERED: IV NS 0.9% 1,000 ML BAG IV ONE (16:00)
[2019-12-09] MEDS ORDERED: ONDANSETRON HCL/PF 4 MG/2 ML VIAL IVP ONE (16:00)
[2019-12-09] MEDS ORDERED: MORPHINE SULFATE INJ 2 MG/ML DISP.SYRIN IV ONE (16:00)
[2019-12-09 16:20] LABS: BASOPHILS # (AUTO) 0.1 /CMM (0.0-0.2); BASOPHILS % (AUTO) 0.9 % (0.0-2.0); EOSINOPHILS % (AUTO) 0.6 % (0.0-6.0); HEMATOCRIT 37 % (33-45); HEMOGLOBIN 11.6 g/dL (11.5-14.8); LYMPHOCYTES # (AUTO) 0.7 /CMM (0.8-4.8); LYMPHOCYTES % (AUTO) 5.9 % (20.0-44.0); MEAN CORPUSCULAR HGB CONC 32 g/dl (31.0-36.0); MEAN CORPUSCULAR VOLUME 88 fL (82-100); MONOCYTES # (AUTO) 0.6 /CMM (0.1-1.30); NEUTROPHILS % (AUTO) 87.6 % (43.0-81.0); PLATELET COUNT (AUTO) 282 /CMM (150-450); RED BLOOD CELL COUNT(AUTO) 4.16 MIL/uL (4.0-5.2); WHITE BLOOD COUNT (AUTO) 12.6 K/uL (4.3-11.0)
--- NOTE | 2019-12-09 16:33 | NUR ---
BIBSELF C/O BACK PAIN SINCE LAST NIGHT & BURNING PAIN WHEN VOIDING X 5 DAYS TOOK NORCO AT 6AM. PT AAOX4, VSS. RR EVEN & UNLABORED. DENIES CP, SOB, DIZZINESS, N/V AT THIS TIME. PT SEEN & EVAL'D BY DR. BUTCHER. MEDICATED ORDERED, PT ELVIN WELL. WILL CONT TO MONITOR.
[2019-12-09 16:35] LABS: ALBUMIN 3.6 g/dL (3.4-5.0); BILIRUBIN,DIRECT 0.1 mg/dL (0.0-0.2); BILIRUBIN,TOTAL 0.6 mg/dL (0.2-1.0); CALCIUM, SERUM 9.4 mg/dL (8.5-10.1); CREATININE 1.2 mg/dL (0.6-1.3); POTASSIUM 4.2 mmol/L (3.5-5.1)
[2019-12-09] MEDS ORDERED: IOHEXOL-300 100 ML VIAL IV ONE (17:18)
[2019-12-09] MEDS ORDERED: IV NS 0.9% 250 ML IV ONE (17:19)
[2019-12-09] MEDS ORDERED: CT SWABBABLE VALVE TRANS SET 1 EA INFUS.SET MC ONE (17:19)
--- NOTE | 2019-12-09 18:28 | NUR ---
CALLED [facility] ASKED FOR RADIOLOGIST TO CALL US BACK. [phone]
[2019-12-09] MEDS ORDERED: KETOROLAC TROMETHAMINE INJ 30 MG/ML VIAL IV ONE (18:30)
[2019-12-09] MEDS ORDERED: KETOROLAC TROMETHAMINE INJ 30 MG/ML VIAL ONE (18:41)
--- NOTE | 2019-12-09 18:45 | NUR ---
MEDICATED FOR PAIN PER ERMD ORDER, PT ELVIN WELL
--- NOTE | 2019-12-09 18:51 | NUR ---
COVID SWAB DONE AND SENT TO LAB
[2019-12-09] MEDS ORDERED: CYAN10006 IM (18:55)
--- NOTE | 2019-12-09 19:13 | NUR ---
[facility] UROLOGY [phone] DR. FATEMEH CONWAY
[2019-12-09] MEDS ORDERED: CEFTRIAXONE 1GM BAG (ER ONLY) 50 ML IV ONE (19:26)
[2019-12-09] MEDS ORDERED: CEFTRIAXONE 1GM BAG (ER ONLY) 1 GM/50 ML PIGGYBACK IV ONE (19:30)
[2019-12-09 19:43] LABS: APPEARANCE,URINE Slightly Cloudy (CLEAR); BILIRUBIN,URINE Negative (NEGATIVE); BLOOD, URINE Moderate Ery/uL (NEGATIVE); COLOR,URINE Light yellow (YELLOW); KETONES,URINE Negative (NEGATIVE); LEUKOCYTE ESTERASE ,URINE Large (NEGATIVE); NITRITE, URINE Negative (NEGATIVE); PH,URINE 5.5 (5.0-8.0); PROTEIN,URINE 100 mg/dl (NEGATIVE); UGLUCOSE Negative (NEGATIVE); UROBILINOGEN,URINE 0.2 EU/dL (0.2)
[2019-12-09 20:01] LABS: BACTERIA,URINE 2+ /HPF (None Seen); SQUAMOUS EPITHELIAL CELL,UR Few /HPF (None Seen); WBC,URINE 21-50 /HPF (0-3)
[2019-12-09] MEDS ORDERED: MAGNESIUM HYDROXIDE 30 ML UDC PO PRN (21:00)
[2019-12-09] MEDS ORDERED: ALPRAZOLAM 0.25 MG TABLET PO PRN (21:00)
[2019-12-09] MEDS ORDERED: ONDANSETRON HCL/PF 4 MG/2 ML VIAL IVP PRN (21:00)
[2019-12-09] MEDS ORDERED: Z GUARD REMEDY 2 OZ OINT TP PRN (21:00)
[2019-12-09] MEDS ORDERED: MAG HYDROX/AL HYDROX/SIMETH 30 ML UDC PO PRN (21:00)
[2019-12-09] MEDS ORDERED: CYANOCOBALAMIN 1,000 MCG/ML VIAL IM SCH (21:00)
[2019-12-09] MEDS ORDERED: ZOLPIDEM TARTRATE 5 MG TABLET PO PRN (21:00)
--- NOTE | 2019-12-09 21:30 | NUR ---
MS RN NOTES: PATIENT CAME FROM ER PER WHEELCHAIR, AWAKE A/O X4. AMBULATORY STEADY. NO SOB NOTED. FOOD PROVIDED. NO N/V NOTED.
--- NOTE | 2019-12-09 21:34 | NUR ---
REPORT GIVEN TO PRIYA SULLIVAN FOR NIKITA.
[2019-12-09 21:40] VITALS: BP 86/59
[2019-12-09 22:00] VITALS: BP 86/59
[2019-12-09] MEDS ORDERED: ESTROGEN,CON/MPROGEST0.3-1.5MG 1 EACH TABLET PO SCH (22:00)
[2019-12-09] MEDS: SERTRALINE HCL 50 MG TABLET PO SCH (22:39)
[2019-12-09] MEDS: MORPHINE SULFATE INJ 2 MG/ML DISP.SYRIN IV PRN (22:40)
--- NOTE | 2019-12-09 22:45 | NUR ---
DR DELAROSA CAME AND SEEN THE PATIENT AND TALKED TO THE PATIENT REGARDING THE PLAN.
--- NOTE | 2019-12-09 22:58 | NUR ---
MISSING MEDS ( CYANOCOBALAMIN 1000 MCG AND PEMPRO) FAXED TO THE NURSING ACCOUNTANT SUPERVISOR.
[2019-12-09] MEDS ORDERED: CYANOCOBALAMIN 1,000 MCG/ML VIAL ONE (23:08)
--- NOTE | 2019-12-09 23:22 | NUR ---
NURSING ACCOUNTS PAYABLE ACCOUNTANT KIAH CAME WITH THE MED CYANOCOBALAMIN 1000MCG AND GIVEN TO THE PATIENT. THE MED PEMPRO PILL IS NOT AVAILABLE PER NURSING ACCOUNTS PAYABLE ACCOUNTANT,PATIENT WILL HAVE IT TOMORROW.PATIENT IS AWARE AND AGREED.
[2019-12-10] MEDS: MORPHINE SULFATE INJ 2 MG/ML DISP.SYRIN IV PRN ×3 (03:15→14:11)
[2019-12-10] MEDS: ACETAMINOPHEN 325 MG TABLET PO PRN (05:50)
[2019-12-10 06:41] LABS: BASOPHILS # (AUTO) 0.1 /CMM (0.0-0.2); BASOPHILS % (AUTO) 0.5 % (0.0-2.0); EOSINOPHILS % (AUTO) 0.3 % (0.0-6.0); HEMATOCRIT 34 % (33-45); HEMOGLOBIN 10.7 g/dL (11.5-14.8); LYMPHOCYTES # (AUTO) 0.6 /CMM (0.8-4.8); LYMPHOCYTES % (AUTO) 5.7 % (20.0-44.0); MEAN CORPUSCULAR HGB CONC 31 g/dl (31.0-36.0); MEAN CORPUSCULAR VOLUME 88 fL (82-100); MONOCYTES # (AUTO) 0.4 /CMM (0.1-1.30); NEUTROPHILS # (AUTO) 9.9 /CMM (1.8-8.9); NEUTROPHILS % (AUTO) 89.5 % (43.0-81.0); PLATELET COUNT (AUTO) 250 /CMM (150-450)
--- NOTE | 2019-12-10 06:53 | NUR ---
MS RN CLOSING NOTES: PATIENT IN BED.ASLEEP. CALL LIGHTWITHIN REACH. BED IN LOWEST AND LOCKED POSITION.HAD TEMP 100.8,TYLENOL 650MG PO GIVEN AT 0549. AMBULATORY.MEDICATED WITH MORPHINE 2X.
[2019-12-10 06:56] LABS: CALCIUM, SERUM 8.4 mg/dL (8.5-10.1); CREATININE 1.2 mg/dL (0.6-1.3); MAGNESIUM 1.4 mg/dL (1.8-2.4); PHOSPHORUS 2.7 mg/dL (2.5-4.9); POTASSIUM 3.6 mmol/L (3.5-5.1)
--- NOTE | 2019-12-10 07:30 | NUR ---
RN NOTES RECEIVED PATIENT IN BED RESTING COMFORTABLY IN MODERATE HIGH BACK REST. A/O X4. NO SIGNS OF DISTRESS NOTED AT THIS TIME. IV ACCESS ON RAC #20, INTACT AND PATENT. SAFETY MEASURES IN PLACE, BED IN LOW/LOCKED POSITION, SIDE RAILS UPX2,CALL LIGHT IN REACH. WILL CONTINUE TO MONITOR.
[2019-12-10] MEDS: HYDROCODONE/APAP 5/325MG TABLET PO PRN ×3 (10:48→22:13)
[2019-12-10] MEDS ORDERED: ZOSYN IVPB 3.375 G in IV D5W 50ml IV ONE (18:00)
--- NOTE | 2019-12-10 18:31 | NUR ---
RN NOTES PATIENT IN BED RESTING COMFORTABLY IN MODERATE HIGH BACK REST. A/O X4. NO SIGNS OF DISTRESS NOTED THROUGHOUT THE SHIFT. IV ACCESS ON RAC #20, INTACT AND PATENT. SAFETY MEASURES IN PLACE, BED IN LOW/LOCKED POSITION, SIDE RAILS UPX2,CALL LIGHT IN REACH. WILL ENDORSE TO VETERINARY LABORATORY TECHNICIAN NURSE FOR NIKITA.
--- NOTE | 2019-12-10 19:50 | NUR ---
RN NOTES RECEIVED PT. AWAKEON BED, A/OX4, AMBULATORY, TALKING ON HER CELLPHONE, NOT IN DISTRESS, PAIN IS TOLERABLE AT THIS TIME, CALL LIGHT WITHINREACH, SIDERAILSUPX2, CONTINUE TO MONITOR
[2019-12-10 20:00] VITALS: BP 110/58
[2019-12-10] MEDS: KETOROLAC TROMETHAMINE INJ 30 MG/ML VIAL IV PRN (20:06)
--- NOTE | 2019-12-10 20:08 | NUR ---
RN NOTES COMPLAINED OF ABDOMINAL PAIN- TORADOL 15MG IV GIVEN ORDERED, V/S STABLE
[2019-12-10] MEDS ORDERED: CEFTRIAXONE 1 G in IV D5W 50 ML IV SCH (21:00)
[2019-12-10] MEDS: SERTRALINE HCL 50 MG TABLET PO SCH (21:24)
[2019-12-10] MEDS: PIPERACILLIN /TAZOBACTAM 3.375 G in IV D5W 100 ML IV SCH (21:24)
[2019-12-10] MEDS ORDERED: ESTROGEN,CON/MPROGEST0.3-1.5MG 1 EACH TABLET PO SCH (22:00)
--- NOTE | 2019-12-10 22:16 | NUR ---
RN NOTES COMPLAINED OF ABDOMINAL PAIN AND ASKED FOR NORCO, NORCO 5/325MG PO GIVEN ORDERED, V/S STABLE
[2019-12-11] MEDS: KETOROLAC TROMETHAMINE INJ 30 MG/ML VIAL IV PRN ×2 (02:46→12:36)
--- NOTE | 2019-12-11 02:49 | NUR ---
RN NOTES complained of flank pain- toradol 15mg IV given as ordered,V/ S stable
[2019-12-11] MEDS: ACETAMINOPHEN 325 MG TABLET PO PRN (03:15)
--- NOTE | 2019-12-11 03:16 | NUR ---
RN NOTES COMPLAINED OF HEADACHE-TYLENOL 650MG PO GIVEN ORDERED
[2019-12-11] MEDS: PIPERACILLIN /TAZOBACTAM 3.375 G in IV D5W 100 ML IV SCH ×2 (05:40→14:15)
--- NOTE | 2019-12-11 06:40 | NUR ---
RN NOTES SLEEPING BUT AROUSABLE, NOT IN DISTRESS, PAIN IS TOLERABLE AT THIS TIME, NO SOB, CALL LIGHT WITHIN REACH, SIDERAILSUPX2, PT. NEEDS ATTENDED
--- NOTE | 2019-12-11 06:49 | NUR ---
RN NOTES COMPLAINED OF FEELING NAUSEOUS- ZOFRAN 4MG IV GIVEN ORDERED
[2019-12-11 06:55] LABS: BASOPHILS % (AUTO) 0.3 % (0.0-2.0); EOSINOPHILS % (AUTO) 2.9 % (0.0-6.0); HEMATOCRIT 32 % (33-45); LYMPHOCYTES # (AUTO) 0.6 /CMM (0.8-4.8); LYMPHOCYTES % (AUTO) 8.2 % (20.0-44.0); MEAN CORPUSCULAR HGB CONC 32 g/dl (31.0-36.0); MEAN CORPUSCULAR VOLUME 87 fL (82-100); MONOCYTES # (AUTO) 0.5 /CMM (0.1-1.30); NEUTROPHILS # (AUTO) 6.4 /CMM (1.8-8.9); NEUTROPHILS % (AUTO) 82.6 % (43.0-81.0); PLATELET COUNT (AUTO) 215 /CMM (150-450); RED BLOOD CELL COUNT(AUTO) 3.61 MIL/uL (4.0-5.2); WHITE BLOOD COUNT (AUTO) 7.7 K/uL (4.3-11.0)
[2019-12-11 07:15] LABS: CALCIUM, SERUM 8.6 mg/dL (8.5-10.1); CREATININE 1.1 mg/dL (0.6-1.3); MAGNESIUM 1.6 mg/dL (1.8-2.4); PHOSPHORUS 3.3 mg/dL (2.5-4.9); POTASSIUM 3.5 mmol/L (3.5-5.1)
--- NOTE | 2019-12-11 07:25 | NUR ---
MS RN NOTES PATIENT RECEIVED IN BED RESTING COMFORTABLY, AWAKE, ALERT AND ORIENTED X 4. ON ROOM AIR WITH NO SIGNS OF RESPIRATORY DISTRESS AT THIS TIME, WITH EVEN NON-LABORED BREATHING. IV ACCESS INTACT AND PATENT, SKIN WARM AND DRY TO TOUCH. PATIENT PRESENTS WITH NO SIGNS OF PAIN OR DISCOMFORT AT THIS TIME. NO NAUSEA PRESENT AT THIS TIME. SAFETY PRECAUTIONS IMPLEMENTED WITH BED LOCKED, BED IN THE LOWEST POSITION, BILATERAL SIDE RAILS UP, AND CALL LIGHT WITHIN EASY REACH OF THE PATIENT. WILL CONTINUE TO MONITOR PATIENT.
[2019-12-11 08:00] VITALS: BP 107/62
[2019-12-11] MEDS: HYDROCODONE/APAP 5/325MG TABLET PO PRN ×2 (08:38→18:09)
[2019-12-11] MEDS: Magnesium 1GM/D5W 100ML PREMIX 100 ML IV SCH ×2 (11:00→12:33)
[2019-12-11] MEDS: MORPHINE SULFATE INJ 2 MG/ML DISP.SYRIN IV PRN ×2 (14:15→20:29)
[2019-12-11] MEDS: LEVOFLOXACIN (250MG) 250 MG TABLET PO SCH (16:36)
[2019-12-11] MEDS ORDERED: LEVOFLOXACIN (750 MG) 750 MG TABLET PO SCH (17:00)
--- NOTE | 2019-12-11 18:45 | NUR ---
MS RN NOTES PATIENT IN BED RESTING COMFORTABLY, AWAKE, ALERT AND ORIENTED X 4. ON ROOM AIR WITH NO SIGNS OF RESPIRATORY DISTRESS AT THIS TIME, WITH EVEN NON-LABORED BREATHING. IV ACCESS INTACT AND PATENT, SKIN WARM AND DRY TO TOUCH. MET ALL OF PATIENT'S NEEDS. SKIN KEPT CLEAN AND DRY. PATIENT PRESENTS WITH NO NAUSEA PRESENT AT THIS TIME. SAFETY PRECAUTIONS IMPLEMENTED WITH BED LOCKED, BED IN THE LOWEST POSITION, BILATERAL SIDE RAILS UP, AND CALL LIGHT WITHIN EASY REACH OF THE PATIENT. WILL ENDORSE PLAN OF CARE TO UPCOMING NURSE.
--- NOTE | 2019-12-11 19:47 | NUR ---
MS RN OPENING NOTES RECEIVED PATIENT RESTING IN BED COMFORTABLY; A/OX4, BREATHING EVEN AND UNLABORED; NO SOB NOTED; PATIENT TOLERATING ROOM AIR WELL; PATIENT ABLE TO MAKE NEEDS KNOWN; PER PATIENT, SHE IS HAVING SOME ANXIETY REGARDING HER SITUATION; PATIENT WA S ASKED IF SHE NEEDED ANYTHING, PATIENT DECLINED; PATIENT REPORTED SHE WANTS TO BE ABLE TO GET ENOUGH SLEEP TONIGHT; L AC #20 H/L INTACT AND PATENT, FLUSHING WELL; NO S/S OF REDNESS OR INFILTRATION NOTED; SAFETY PRECAUTIONS IMPLEMENTED; BED LOCKED IN LOW POSITION; SIDE RAILSX2; CALL LIGHT WITHIN REACH; WILL CONT TO MONITOR
[2019-12-11 20:00] VITALS: BP 112/70
[2019-12-11 20:28] VITALS: BP 112/70
--- NOTE | 2019-12-11 20:33 | NUR ---
MS RN NOTES PATIENT COMPLAINT OF GENERALIZED PAIN (11/27); PATIENT ABLE TO MAKE NEEDS KNOWN; A/OX4, VITAL SIGNS STABLE; 2MG MORPHINE IVP ADMINISTERED PER MD ORDER; WILL CONT TO MONITOR
[2019-12-11] MEDS: SERTRALINE HCL 50 MG TABLET PO SCH (21:26)
[2019-12-12] MEDS: MORPHINE SULFATE INJ 2 MG/ML DISP.SYRIN IV PRN ×5 (01:37→22:21)
--- NOTE | 2019-12-12 01:37 | NUR ---
MS RN NOTES PATIENT WOKE UP FROM SLEEP TO USE THE RESTROOM; ONCE AMBULATING, PATIENT REPORTED SHARP ABDOMINAL PAIN AGAIN; PATIENT RATED 8/10; PATIENT A/OX4; BREATHING EVEN AND UNLABORED; ABLE TO MAKE NEEDS KNOWN; VITALS STABLE; PER PATIENT, SHE FEELS MORPHINE IVP HELPS HER BETTER THAN TORADOL IVP; 2MG MORPHINE IVP ADMINISTERED PER MD ORDER; WILL CONT TO MONITOR
--- NOTE | 2019-12-12 06:39 | NUR ---
MS RN CLOSING NOTES PATIENT RESTING IN BED COMFORTABLY; A/OX4, BREATHING EVEN AND UNLABORED; NO SOB NOTED; TOLERATING ROOM AIR WELL; PATIENT ABLE TO MAKE NEEDS KNOWN; PATIENT COMPLAINING OF GENERALIZED ABDOMINAL/BACK PAIN, 2MG MORPHINE IVP ADMINISTERED PER MD ORDER; VITALS STABLE; ABLE TO MAKE NEEDS KNOWN; PATIENT COMPLAINT OF GENERALIZED ABDOMINAL/BACK PAIN THROUGHOUT SHIFT; L AC #20 INTACT AND PATENT, FLUSHING WELL; NO S/S OF REDNESS OR INFILTRATION NOTED; ALL NEEDS RENDERED; SAFETY PRECAUTIONS IMPLEMENTED; BED LOCKED IN LOW POSITION; SIDE RAILSX2; CALL LIGHT WITHIN REACH; WILL ENDORSE NIKITA TO ONCOMING SHIFT
[2019-12-12 06:52] LABS: BASOPHILS % (AUTO) 0.5 % (0.0-2.0); EOSINOPHILS % (AUTO) 2.6 % (0.0-6.0); HEMATOCRIT 31 % (33-45); LYMPHOCYTES # (AUTO) 0.9 /CMM (0.8-4.8); LYMPHOCYTES % (AUTO) 15.4 % (20.0-44.0); MEAN CORPUSCULAR HGB CONC 32 g/dl (31.0-36.0); MEAN CORPUSCULAR VOLUME 86 fL (82-100); MONOCYTES # (AUTO) 0.4 /CMM (0.1-1.30); MONOCYTES % (AUTO) 7.7 % (2.0-12.0); NEUTROPHILS # (AUTO) 4.1 /CMM (1.8-8.9); NEUTROPHILS % (AUTO) 73.8 % (43.0-81.0); PLATELET COUNT (AUTO) 262 /CMM (150-450); RED BLOOD CELL COUNT(AUTO) 3.66 MIL/uL (4.0-5.2); WHITE BLOOD COUNT (AUTO) 5.6 K/uL (4.3-11.0)
[2019-12-12 07:07] LABS: CALCIUM, SERUM 8.6 mg/dL (8.5-10.1); MAGNESIUM 2.4 mg/dL (1.8-2.4); PHOSPHORUS 3.2 mg/dL (2.5-4.9); POTASSIUM 4.2 mmol/L (3.5-5.1)
[2019-12-12 08:00] VITALS: BP 94/62
[2019-12-12] MEDS: HYDROCODONE/APAP 5/325MG TABLET PO PRN (09:19)
--- NOTE | 2019-12-12 11:30 | NUR ---
MS RN NOTES PATIENT REQUESTED MEDICAL RECORDS TO BE SENT TO PRIMARY ONCOLOGIST, RELEASE OF RECORD FORM SIGNED. MEDICAL RECORDS SENT TO .
--- NOTE | 2019-12-12 12:15 | NUR ---
MS RN NOTES PATIENT SEEN AND EVALUATE BY ELVA MCCRACKEN. NO NEW ORDERS.
[2019-12-12] MEDS ORDERED: PHENAZOPYRIDINE HCL 200 MG TABLET PO PRN (13:30)
[2019-12-12 16:00] VITALS: BP 100/62
[2019-12-12] MEDS: LEVOFLOXACIN (250MG) 250 MG TABLET PO SCH (16:42)
--- NOTE | 2019-12-12 17:43 | NUR ---
was seen by urologist with recommendation to f/u with urologist outpt and cont abx for 10-14 days total. She is currently on levaquin PO. Spoke with [facility] Silvia [phone] x [phone] and discussed dc needs for outpt urologist f/u. Faxed clinicals- urologist consult notes and renal consult notes to [facility] outpt dc planning dept [phone] and UR [phone] for [facility] to set up appt. Addendum: 12/12/19 at 1744 by HAO NIELSON RN Amended: Links added.
--- NOTE | 2019-12-12 19:11 | NUR ---
MS RN NOTES PATIENT IN BED RESTING NO SOB OR ACUTE DISTRESS NOTED. NO ACUTE CHANGES NOTED DURING AM SHIFT. ALL DUE MEDICATIONS ADMINISTERED. ALL NEEDS MET. ENDORSED CARE TO PM SHIFT.
--- NOTE | 2019-12-12 19:20 | NUR ---
MS RN OPENING NOTES RECEIVED PATIENT RESTING IN BED COMFORTABLY; A/OX4, BREATHING EVEN AND UNLABORED; NO SOB NOTED; PATIENT TOLERATING ROOM AIR WELL; PATIENT ABLE TO MAKE NEEDS KNOWN; PER PATIENT, SHE IS HAVING SOME ANXIETY REGARDING HER SITUATION; PATIENT WA S ASKED IF SHE NEEDED ANYTHING, PATIENT DECLINED; PATIENT REPORTED SHE WANTS TO BE ABLE TO GET ENOUGH SLEEP TONIGHT; RIGHT AC #20 H/L INTACT AND PATENT, FLUSHING WELL. SAFETY PRECAUTIONS IMPLEMENTED. BED LOCKED IN LOW POSITION WITH SIDE RAILSX2; CALL LIGHT WITHIN REACH; WILL CONT TO MONITOR ACCORDINGLY.
[2019-12-12 20:00] VITALS: BP 109/68
[2019-12-12] MEDS: SERTRALINE HCL 50 MG TABLET PO SCH (21:05)
--- NOTE | 2019-12-12 22:24 | NUR ---
MS/RN NOTES: PT COMPLAINED OF PAIN. 8 OUT OF 10. ADMINISTERED MORPHINE 2MG 1ML IVP. VSS. BP:128/79 HR:93. WILL CONTINUE TO MONITOR.
[2019-12-13] MEDS: MORPHINE SULFATE INJ 2 MG/ML DISP.SYRIN IV PRN ×2 (03:47→09:54)
--- NOTE | 2019-12-13 03:47 | NUR ---
MS/RN NOTES: PT COMPLAINED OF PAIN. 8 OUT OF 10. ADMINISTERED MORPHINE 2MG 1ML IVP. VSS. BP:118/69 HR:72. WILL CONTINUE TO MONITOR.
--- NOTE | 2019-12-13 06:30 | NUR ---
MS/RN CLOSING NOTES: PATIENT REMAINS RESTING IN BED. A/OX4, NO SIGNIFICANT CHANGES IN CONDITION. BREATHING EVEN AND UNLABORED; NO SOB NOTED. PATIENT TOLERATING ROOM AIR WELL; PATIENT ABLE TO MAKE NEEDS KNOWN; RIGHT AC #20 H/L INTACT AND PATENT, FLUSHING WELL. ALL DUE MEDS GIVEN ORDERED. PAIN WAS MANAGED THROUGHOUT THE NIGHT. ALL NURSING NEEDS MET AND RENDERED. SAFETY PRECAUTIONS KEPT IN PLACE. BED LOCKED IN LOW POSITION WITH SIDE RAILSX2; CALL LIGHT WITHIN REACH; WILL ENDORSE TO DAY SHIFT RN FOR NIKITA.
--- NOTE | 2019-12-13 07:20 | NUR ---
RN OPENING NOTES RECEIVED PATIENT IN BED RESTING. NOT IN ANY FORM OF DISTRESS. NO SOB. DENIED PAIN OR DISCOMFORT AT THIS TIME. BED IN LOW/LOCKED POSITION.SIDERAILS UPX2,CALL LIGHT IN REACH. WILL CONT TO MONITOR ACCORDINGLY.
[2019-12-13 08:00] VITALS: BP 97/60
[2019-12-13] MEDS ORDERED: HYDROCODONE/APAP 10/325MG TABLET PO PRN (12:00)
[2019-12-13] MEDS ORDERED: PHEN-895 PO (12:08)
[2019-12-13] MEDS ORDERED: Levofloxacin (250MG) PO (12:08)
[2019-12-13] MEDS ORDERED: Hydrocodone/Apap 10/325MG PO (12:08)
--- NOTE | 2019-12-13 15:10 | NUR ---
[facility] Family Legal Mediator is delegated for outpt appt per [facility]. Spoke with Alma at pcp office - obtained patient appointment with pcp Dr.Salman Henry Valdez [phone] on December 1:45pm address: [address] [place] [address]. Clinicals faxed to MD office [phone]. will refer patient to [facility] provider urologist . Addendum: 12/13/19 at 1510 by HAO NIELSON RN Amended: Links added.
[2019-12-13 15:23] VITALS: BP 116/71
--- NOTE | 2019-12-13 15:34 | NUR ---
discharged patient in stable condition, accompanied by CARRINGTON Baron to the lobby. DC instructions given, verbalized understanding. DC paperwork and prescriptions handed to the patient. all belongings returned, forms signed. iv access removed, applied pressure, no complications. name band removed.
== END 2019-12-13 15:28 | disposition home or self-care (01) | DRG 463 ==
LOC: ER 14:39 → MEDSG2 21:26
PROVIDERS: ADMIT Family Medicine; ATTEND Nurse Practitioner Acute Care
DX: N10 Acute pyelonephritis (principal); F41.9 Anxiety disorder, unspecified; F32.9 Major depressive disorder, single episode, unspecified; B96.20 Unspecified Escherichia coli [E. coli] as the cause of diseases classified elsewhere; K52.9 Noninfective gastroenteritis and colitis, unspecified; N17.9 Acute kidney failure, unspecified; G89.4 Chronic pain syndrome; Z92.3 Personal history of irradiation; Z85.41 Personal history of malignant neoplasm of cervix uteri; Z90.710 Acquired absence of both cervix and uterus; Z98.84 Bariatric surgery status; D72.829 Elevated white blood cell count, unspecified; R59.0 Localized enlarged lymph nodes; N13.6 Pyonephrosis; N34.2 Other urethritis; Z85.038 Personal history of other malignant neoplasm of large intestine; D63.8 Anemia in other chronic diseases classified elsewhere
CPT/HCPCS: 36415; 76770-TC; 80048-TC; 80061-TC; 80076-TC; 81000-TC; 83690-TC; 83735-TC; 84100-TC; 84702-TC; 84703-TC; 85025-TC; 87081-TC; 87086-TC; 87186-TC; C9803-CS; G0378; J0696; J1885; J2270; J2405; J2543; J3420; J3475; J7030; J7050; J7060; Q9967

== ENCOUNTER 2020-07-26 00:06 | Emergency (ER) | payer OTHER ==
[~2020-07-26] VITALS: Ht 157.5 cm; Wt 63.5 kg
[~2020-07-26 00:06] MED LIST changes: -ALPR0.5T PO; +CYAN10006 IM; -ESOM40CA PO; -HYDR-4384 PO; +Hydrocodone/Apap 10/325MG PO; +Levofloxacin (250MG) PO; +PHEN-895 PO
--- NOTE | 2020-07-26 00:50 | NUR ---
BIBS FOR C/O DEPRESSION, ANXIETY AND MENTAL BREAK DOWN. PT REPORTED TAKING ZOLOFT AND CLONOPIN AND HAS HER OWN PSYCHOLOGIST AND PSYCHIATRIC BUT TODAY SHE CAN NOT JUST STOP CRYING. DENIED SI OR HI AT THIS TIME. PT AMBULATORY TO BED 10, WAS PLACED ON A MONITOR AND ON SI PRECAUTION. VSS. WILL CONT TO MONITOR.
[2020-07-26] MEDS ORDERED: LORAZEPAM 1 MG TABLET ONE (01:06)
[2020-07-26] MEDS: LORAZEPAM 1 MG TABLET PO ONE (01:09)
--- NOTE | 2020-07-26 02:39 | NUR ---
PT AMBULATED TO THE NURSING STATION AND ASKED TO BE DISCHARGED. PT DISCHARGED. VSS. DENIES SI AND HI.
[2020-07-26 02:40] VITALS: BP 125/76
== END 2020-07-26 02:41 | disposition home or self-care (01) ==
LOC: ER 00:06
DX: F41.9 Anxiety disorder, unspecified (principal); F32.9 Major depressive disorder, single episode, unspecified; Z85.038 Personal history of other malignant neoplasm of large intestine; Z85.41 Personal history of malignant neoplasm of cervix uteri; Z90.710 Acquired absence of both cervix and uterus; Z98.890 Other specified postprocedural states; Z79.899 Other long term (current) drug therapy

== ENCOUNTER 2020-08-19 14:30 | Emergency (ER) | payer OTHER ==
[~2020-08-19] VITALS: Ht 157.5 cm; Wt 63.5 kg
--- NOTE | 2020-08-19 14:30 | NUR ---
PT BIB SELF C/O BILATERAL FLANK PAIN SINCE THURSDAY. PT IS AAOX4, NOT IN RESPIRATORY DISTRESS, V/S STABLE, KEPT RESTED AND COMFORTABLE. WILL CONTINUE TO MONITOR.
--- NOTE | 2020-08-19 15:06 | NUR ---
SEEN AND EXAMINED BY .
--- NOTE | 2020-08-19 15:20 | NUR ---
IV LINE ESTABLISHED BLOOD DRAWN AND SENT TO LAB.
[2020-08-19] MEDS ORDERED: LORAZEPAM 1 MG TABLET ONE (15:29)
[2020-08-19] MEDS ORDERED: IV NS 0.9% 1,000 ML BAG IV ONE (15:30)
[2020-08-19] MEDS ORDERED: KETOROLAC TROMETHAMINE INJ 30 MG/ML VIAL IV ONE (15:30)
[2020-08-19] MEDS ORDERED: LORAZEPAM 1 MG TABLET PO ONE (15:30)
--- NOTE | 2020-08-19 15:34 | NUR ---
UNABLE TO PROVIDE URINE SPECIMEN THIS TIME.
[2020-08-19 15:35] LABS: BASOPHILS % (AUTO) 0.3 % (0.0-2.0); EOSINOPHILS % (AUTO) 2.4 % (0.0-6.0); HEMATOCRIT 36 % (33-45); HEMOGLOBIN 11.5 g/dL (11.5-14.8); LYMPHOCYTES # (AUTO) 1.4 /CMM (0.8-4.8); LYMPHOCYTES % (AUTO) 17.9 % (20.0-44.0); MEAN CORPUSCULAR HGB CONC 32 g/dl (31.0-36.0); MEAN CORPUSCULAR VOLUME 85 fL (82-100); MONOCYTES # (AUTO) 0.3 /CMM (0.1-1.30); MONOCYTES % (AUTO) 4.3 % (2.0-12.0); NEUTROPHILS % (AUTO) 75.1 % (43.0-81.0); PLATELET COUNT (AUTO) 297 /CMM (150-450); RED BLOOD CELL COUNT(AUTO) 4.25 MIL/uL (4.0-5.2)
[2020-08-19 15:47] LABS: ALANINE AMINOTRANSFERASE 19 U/L (12-78); ALBUMIN 3.6 g/dL (3.4-5.0); ALKALINE PHOSPHATASE 70 U/L (46-116); ASPARTATE AMINOTRANSFERASE 11 U/L (15-37); BILIRUBIN,DIRECT 0.1 mg/dL (0.0-0.2); BILIRUBIN,TOTAL 0.5 mg/dL (0.2-1.0); CALCIUM, SERUM 8.9 mg/dL (8.5-10.1); CARBON DIOXIDE 22 mmol/L (21-32); CHLORIDE 105 mmol/L (98-107); GLUCOSE 81 mg/dL (74-106); LIPASE 83 U/L (73-393); POTASSIUM 3.9 mmol/L (3.5-5.1); SODIUM SERUM 138 mmol/L (136-145); TOTAL PROTEIN, SERUM 7.3 g/dL (6.4-8.2); UREA NITROGEN, BLOOD 16 mg/dL (7-18)
--- NOTE | 2020-08-19 16:15 | NUR ---
URINE SPECIMEN COLLECTED AND SENT TO LAB.
--- NOTE | 2020-08-19 16:24 | NUR ---
PENDING TEST FOR CT SCAN
[2020-08-19] MEDS ORDERED: KETOROLAC TROMETHAMINE 15 MG/ML VIAL ONE (17:00)
--- NOTE | 2020-08-19 17:00 | NUR ---
PT SIGNED WAIVER STATING SHE IS NOT .
--- NOTE | 2020-08-19 17:09 | NUR ---
PT IS WHEELED TO CT SCAN VIA [facility].
[2020-08-19] MEDS ORDERED: IV NS 0.9% 250 ML IV ONE (17:10)
[2020-08-19] MEDS ORDERED: IOHEXOL-300 100 ML VIAL IV ONE (17:10)
[2020-08-19] MEDS ORDERED: CT SWABBABLE VALVE TRANS SET 1 EA INFUS.SET MC ONE (17:10)
[2020-08-19 17:19] LABS: BILIRUBIN,URINE NEGATIVE (NEGATIVE); COLOR,URINE YELLOW (YELLOW); LEUKOCYTE ESTERASE ,URINE NEGATIVE (NEGATIVE); NITRITE, URINE NEGATIVE (NEGATIVE); PH,URINE 5.5 (5.0-8.0); PROTEIN,URINE NEGATIVE (NEGATIVE); UGLUCOSE NEGATIVE (NEGATIVE); UROBILINOGEN,URINE 0.2 EU/dL (0.2)
[2020-08-19] MEDS ORDERED: ONDA4TAB5 PO (19:00)
--- NOTE | 2020-08-19 19:18 | NUR ---
IV removed. Catheter intact and site benign. Pressure and 4x4 applied to site. No bleeding noted. Patient discharged to home in stable condition. Written and verbal after care instructions given. Patient verbalizes understanding of instruction.
[2020-08-19 19:20] VITALS: BP 135/82
== END 2020-08-19 19:20 | disposition home or self-care (01) ==
LOC: ER 14:37
DX: R10.9 Unspecified abdominal pain (principal); C79.82 Secondary malignant neoplasm of genital organs; Z98.890 Other specified postprocedural states; Z79.899 Other long term (current) drug therapy
CPT/HCPCS: 36415; 74177; 80048; 80076; 81003; 83690; 84484; 84702; 84703; 85025; 85730; 96361; 96374; 99285; J1885; J7030; J7050; Q9967

== ENCOUNTER 2021-01-06 00:14 | Emergency (ER) | payer OTHER ==
[~2021-01-06] VITALS: Ht 157.5 cm; Wt 61.2 kg
[~2021-01-06 00:14] MED LIST changes: +ONDA4TAB5 PO
--- NOTE | 2021-01-06 00:25 | NUR ---
PATIENT WAS BIB SON WITH C/O 8/10 L FLANK PAIN RADIATING TO L SIDE OF THE ABDOMEN X 1 DAY. PATIENT STATED SHE TOOK NORCO AT HOME AT 1500 BUT PAIN REMAINS ABOUT THE SAME. PT IS AAO X 4, BREATHING EVEN AND UNLABORED. PT WAS SEEN AND EXAMINED BY DR JEAN. PT ATTACHED TO MONITOR AND PULSE OX. WILL CONTINUE TO MONITOR AND CARRY OUT MD ORDERS.
[2021-01-06] MEDS ORDERED: IV NS 0.9% 1,000 ML BAG IV ONE (00:30)
[2021-01-06] MEDS ORDERED: KETOROLAC TROMETHAMINE INJ 30 MG/ML VIAL IV ONE (00:30)
[2021-01-06] MEDS ORDERED: KETOROLAC TROMETHAMINE 15 MG/ML VIAL ONE (00:32)
--- NOTE | 2021-01-06 00:40 | NUR ---
URINE COLLECTED AND SENT TO LAB
--- NOTE | 2021-01-06 00:56 | NUR ---
IV LINE ESTABLISHED AT L HAND 22G, BLOOD DRAWN AND SENT TO LAB
[2021-01-06 01:08] LABS: BASOPHILS # (AUTO) 0.1 K/uL (0.0-0.2); BASOPHILS % (AUTO) 1.4 % (0.0-2.0); EOSINOPHILS % (AUTO) 2.1 % (0.0-6.0); HEMATOCRIT 34 % (33-45); HEMOGLOBIN 11.1 g/dL (11.5-14.8); LYMPHOCYTES # (AUTO) 1.8 K/uL (0.8-4.8); LYMPHOCYTES % (AUTO) 21.9 % (20.0-44.0); MEAN CORPUSCULAR HGB CONC 32 g/dl (31.0-36.0); MEAN CORPUSCULAR VOLUME 86 fL (82-100); MONOCYTES # (AUTO) 0.5 K/uL (0.1-1.30); MONOCYTES % (AUTO) 5.7 % (2.0-12.0); NEUTROPHILS # (AUTO) 5.8 K/uL (1.8-8.9); NEUTROPHILS % (AUTO) 68.9 % (43.0-81.0); PLATELET COUNT (AUTO) 285 K/uL (150-450); RED BLOOD CELL COUNT(AUTO) 3.98 MIL/uL (4.0-5.2); WHITE BLOOD COUNT (AUTO) 8.4 K/uL (4.3-11.0)
[2021-01-06 01:10] LABS: BILIRUBIN,URINE NEGATIVE (NEGATIVE); COLOR,URINE YELLOW (YELLOW); LEUKOCYTE ESTERASE ,URINE NEGATIVE (NEGATIVE); NITRITE, URINE NEGATIVE (NEGATIVE); PROTEIN,URINE TRACE mg/dl (NEGATIVE); UGLUCOSE NEGATIVE (NEGATIVE); UROBILINOGEN,URINE 0.2 EU/dL (0.2)
[2021-01-06 01:17] LABS: POTASSIUM 3.3 mmol/L (3.5-5.1)
--- NOTE | 2021-01-06 01:18 | NUR ---
PT TO RADIOLOGY FOR CT OF ABDOMEN/PELVIS
[2021-01-06 01:22] LABS: ALBUMIN 3.4 g/dL (3.4-5.0); BILIRUBIN,DIRECT 0.1 mg/dL (0.0-0.2); BILIRUBIN,TOTAL 0.4 mg/dL (0.2-1.0); TOTAL PROTEIN, SERUM 7.1 g/dL (6.4-8.2)
[2021-01-06 01:59] LABS: BACTERIA,URINE Few /HPF (None Seen); RBC,URINE 0-2 /HPF (0-2); SQUAMOUS EPITHELIAL CELL,UR Moderate /HPF (None Seen); WBC,URINE 0-2 /HPF (0-3)
[2021-01-06] MEDS ORDERED: TRAMADOL HCL 50 MG TABLET PO ONE (02:00)
[2021-01-06] MEDS ORDERED: TRAMADOL HCL 50 MG TABLET ONE (02:03)
[2021-01-06 02:12] VITALS: BP 118/72
--- NOTE | 2021-01-06 02:16 | NUR ---
Patient discharged to home in stable condition. Written and verbal after care instructions given. Patient verbalizes understanding of instruction.
== END 2021-01-06 02:13 | disposition home or self-care (01) ==
LOC: ER 00:14
DX: R10.32 Left lower quadrant pain (principal); Z98.890 Other specified postprocedural states; Z79.899 Other long term (current) drug therapy
CPT/HCPCS: 36415; 71250; 74176; 80048; 80076; 81001; 83690; 84703; 85025; 96361; 96374; 99285; J1885; J7030

== ENCOUNTER 2021-03-13 18:46 | Emergency (ER) | payer OTHER ==
[~2021-03-13] VITALS: Ht 157.5 cm; Wt 65.8 kg
--- NOTE | 2021-03-13 19:07 | NUR ---
BIBS FOR C/O LEFT FLANK PAIN 10/10 AND PRESSURE FEELING ON PUBIC AREA. DENIES N/V. ABDOMEN SOFT AND NON-DISTENDED. RESPIRATION REGULAR AND UNLABORED. WILL CONTINUE TO MONITOR THE PATIENT.
--- NOTE | 2021-03-13 19:21 | NUR ---
US AT BEDSIDE
[2021-03-13] MEDS ORDERED: ONDANSETRON HCL/PF 4 MG/2 ML VIAL ONE (19:29)
[2021-03-13] MEDS ORDERED: KETOROLAC TROMETHAMINE INJ 30 MG/ML VIAL ONE (19:29)
[2021-03-13] MEDS ORDERED: IV NS 0.9% 1,000 ML BAG IV ONE (19:30)
[2021-03-13] MEDS ORDERED: ONDANSETRON HCL/PF 4 MG/2 ML VIAL IVP ONE (19:30)
[2021-03-13] MEDS ORDERED: KETOROLAC TROMETHAMINE INJ 30 MG/ML VIAL IV ONE (19:30)
[2021-03-13 19:43] LABS: BILIRUBIN,URINE NEGATIVE (NEGATIVE); COLOR,URINE YELLOW (YELLOW); LEUKOCYTE ESTERASE ,URINE NEGATIVE (NEGATIVE); NITRITE, URINE NEGATIVE (NEGATIVE); PH,URINE 5.5 (5.0-8.0); PROTEIN,URINE NEGATIVE (NEGATIVE); UGLUCOSE NEGATIVE (NEGATIVE); UROBILINOGEN,URINE 0.2 EU/dL (0.2)
[2021-03-13 19:55] LABS: BASOPHILS # (AUTO) 0.1 K/uL (0.0-0.2); BASOPHILS % (AUTO) 0.9 % (0.0-2.0); EOSINOPHILS % (AUTO) 2.2 % (0.0-6.0); HEMATOCRIT 37 % (33-45); HEMOGLOBIN 11.9 g/dL (11.5-14.8); LYMPHOCYTES # (AUTO) 1.1 K/uL (0.8-4.8); LYMPHOCYTES % (AUTO) 14.2 % (20.0-44.0); MEAN CORPUSCULAR HGB CONC 32 g/dl (31.0-36.0); MEAN CORPUSCULAR VOLUME 87 fL (82-100); MONOCYTES # (AUTO) 0.5 K/uL (0.1-1.30); MONOCYTES % (AUTO) 6.3 % (2.0-12.0); NEUTROPHILS % (AUTO) 76.4 % (43.0-81.0); PLATELET COUNT (AUTO) 283 K/uL (150-450); RED BLOOD CELL COUNT(AUTO) 4.21 MIL/uL (4.0-5.2); WHITE BLOOD COUNT (AUTO) 7.9 K/uL (4.3-11.0)
[2021-03-13 19:56] LABS: CALCIUM, SERUM 8.3 mg/dL (8.5-10.1); CREATININE 1.1 mg/dL (0.6-1.3); POTASSIUM 4.1 mmol/L (3.5-5.1)
[2021-03-13] MEDS ORDERED: MORPHINE SULFATE INJ 2 MG/ML DISP.SYRIN IV ONE (20:00)
[2021-03-13] MEDS ORDERED: MORPHINE SULFATE INJ 4 MG/ML DISP.SYRIN ONE (20:03)
[2021-03-13] MEDS ORDERED: NAPR500T6 PO (21:10)
--- NOTE | 2021-03-13 21:30 | NUR ---
Patient discharged to home in stable condition. Written and verbal after care instructions given. Patient verbalizes understanding of instruction and RX. Pt ambulated out of ED. VSS.
--- NOTE | 2021-03-13 21:30 | NUR ---
IV removed. Catheter intact and site benign. Pressure and 4x4 applied to site. No bleeding noted.
[2021-03-13 21:31] VITALS: BP 126/76
== END 2021-03-13 21:31 | disposition home or self-care (01) ==
LOC: ER 18:48
DX: N13.30 Unspecified hydronephrosis (principal); Z98.890 Other specified postprocedural states; Z79.899 Other long term (current) drug therapy
CPT/HCPCS: 36415; 76770; 80048; 81003; 83690; 84703; 85025; 96361; 96374; 96375; 99284; J1885; J2270; J2405; J7030

== ENCOUNTER 2022-03-16 20:05 | Emergency (ER) | payer OTHER ==
[~2022-03-16] VITALS: Ht 157.5 cm; Wt 63.5 kg
[~2022-03-16 20:05] MED LIST changes: +NAPR500T6 PO
[2022-03-16] MEDS ORDERED: KETOROLAC TROMETHAMINE INJ 60 MG/2 ML VIAL IM ONE (22:30)
[2022-03-16] MEDS ORDERED: KETOROLAC TROMETHAMINE INJ 30 MG/ML VIAL ONE (22:31)
--- NOTE | 2022-03-17 00:39 | NUR ---
Patient discharged to home in stable condition. Written and verbal after care instructions given. Patient verbalizes understanding of instruction.
[2022-03-17 00:44] VITALS: BP 110/66
--- NOTE | 2022-03-17 00:45 | NUR ---
Fide mejia in ED - 03/17/22 at 0045 by NII Patient discharged to home in stable condition. Written and verbal after care instructions given. Patient verbalizes understanding of instruction.
== END 2022-03-17 00:44 | disposition home or self-care (01) ==
LOC: ER 20:07
DX: S60.222A Contusion of left hand, initial encounter (principal); M25.532 Pain in left wrist; Z90.710 Acquired absence of both cervix and uterus; Z79.899 Other long term (current) drug therapy; W01.0XXA Fall on same level from slipping, tripping and stumbling without subsequent striking against object, initial encounter; Y93.89 Activity, other specified; Y92.89 Other specified places as the place of occurrence of the external cause; Y99.8 Other external cause status
CPT/HCPCS: 99284; 96372; 73130; 73030; 73110; J1885

== ENCOUNTER 2022-07-19 16:28 | Inpatient (IN) | payer OTHER ==
[~2022-07-19] VITALS: Ht 157.5 cm; Wt 73.5 kg
--- NOTE | 2022-07-19 16:28 | NUR ---
BIBA FOR WEAKNESS. A/O X 3, ABLE TO MAKE NEEDS KNOWN. TOLERATING WELL ON ROOM AIR.
--- NOTE | 2022-07-19 16:43 | NUR ---
ACCUCHECK 89
[2022-07-19] MEDS ORDERED: IV NS 0.9% 1,000 ML BAG IV ONE (17:00)
[2022-07-19] MEDS ORDERED: MORPHINE SULFATE INJ 2 MG/ML DISP.SYRIN IV ONE (17:00)
[2022-07-19 17:12] LABS: BASOPHILS # (AUTO) 0.1 K/uL (0.0-0.2); BASOPHILS % (AUTO) 0.9 % (0.0-2.0); EOSINOPHILS % (AUTO) 2.1 % (0.0-6.0); HEMATOCRIT 38 % (33-45); HEMOGLOBIN 12.1 g/dL (11.5-14.8); LYMPHOCYTES # (AUTO) 1.6 K/uL (0.8-4.8); LYMPHOCYTES % (AUTO) 23.9 % (20.0-44.0); MEAN CORPUSCULAR HGB CONC 32 g/dl (31.0-36.0); MEAN CORPUSCULAR VOLUME 87 fL (82-100); MONOCYTES # (AUTO) 0.4 K/uL (0.1-1.30); MONOCYTES % (AUTO) 5.6 % (2.0-12.0); NEUTROPHILS # (AUTO) 4.6 K/uL (1.8-8.9); NEUTROPHILS % (AUTO) 67.5 % (43.0-81.0); PLATELET COUNT (AUTO) 323 K/uL (150-450); WHITE BLOOD COUNT (AUTO) 6.8 K/uL (4.3-11.0)
[2022-07-19] MEDS ORDERED: MORPHINE SULFATE INJ 4 MG/ML DISP.SYRIN ONE (17:12)
--- NOTE | 2022-07-19 17:30 | NUR ---
BLOOD SAMPLES COLLECTED
[2022-07-19 17:31] LABS: ALANINE AMINOTRANSFERASE 23 U/L (12-78); ALBUMIN 3.4 g/dL (3.4-5.0); ALKALINE PHOSPHATASE 81 U/L (46-116); ASPARTATE AMINOTRANSFERASE 14 U/L (15-37); BILIRUBIN,DIRECT 0.1 mg/dL (0.0-0.2); BILIRUBIN,TOTAL 0.4 mg/dL (0.2-1.0); CALCIUM, SERUM 8.7 mg/dL (8.5-10.1); CARBON DIOXIDE 24 mmol/L (21-32); CHLORIDE 105 mmol/L (98-107); CREATININE 1.1 mg/dL (0.6-1.3); GLUCOSE 89 mg/dL (74-106); LIPASE 62 U/L (73-393); POTASSIUM 3.8 mmol/L (3.5-5.1); SODIUM SERUM 139 mmol/L (136-145); TOTAL PROTEIN, SERUM 6.7 g/dL (6.4-8.2); UREA NITROGEN, BLOOD 12 mg/dL (7-18)
--- NOTE | 2022-07-19 18:30 | NUR ---
URINE SAMPLE OBTAINED
--- NOTE | 2022-07-19 19:14 | NUR ---
MOVE SHEET SUBMITTED.
--- NOTE | 2022-07-19 19:15 | NUR ---
COVID SWAB OBTAINED
[2022-07-19 19:22] LABS: BILIRUBIN,URINE NEGATIVE (NEGATIVE); COLOR,URINE YELLOW (YELLOW); LEUKOCYTE ESTERASE ,URINE NEGATIVE (NEGATIVE); NITRITE, URINE POSITIVE (NEGATIVE); PROTEIN,URINE NEGATIVE (NEGATIVE); UGLUCOSE NEGATIVE (NEGATIVE); UROBILINOGEN,URINE 0.2 EU/dL (0.2)
[2022-07-19 19:35] LABS: BACTERIA,URINE RARE /HPF (None Seen); RBC,URINE 0-2 /HPF (0-2); WBC,URINE 0-2 /HPF (0-3)
--- NOTE | 2022-07-19 20:56 | NUR ---
Diogo ELLIS [phone] fax number
--- NOTE | 2022-07-19 21:03 | NUR ---
FAXED CLINICAL INFORMATION
--- NOTE | 2022-07-19 21:42 | NUR ---
ROOM 323-2
[2022-07-19] MEDS ORDERED: CEFTRIAXONE 1GM BAG (ER ONLY) 1 GM/50 ML PIGGYBACK IV ONE (22:00)
--- NOTE | 2022-07-19 22:12 | NUR ---
Report given to Rupa RN to continue care.
[2022-07-19 22:30] VITALS: BP 121/79
--- NOTE | 2022-07-19 22:38 | NUR ---
wheeled patient via gurney accompanied by EMT in no distress. RN assigned at bedside to continue care.
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
--- NOTE | 2022-07-20 00:24 | NUR ---
NOTIFIED HOSPITALIST KELLEY THAT PATIENT IS C/O SEVERE RADIATING LEFT FLANK PAIN. SHE SAID SHE TAKES NORCO 10-325MG AT HOME AND THE MORPHINE SULFATE SHE RECEIVED IN THE ER HELPED A LOT. ORDERED MORPHINE SULFATE 4MG IVP Q4H PRN. NOTED AND CARRIED OUT.
[2022-07-20] MEDS: IV NS 0.9% 1,000 ML IV PRN ×2 (00:27→14:00)
[2022-07-20] MEDS ORDERED: MAG HYDROX/AL HYDROX/SIMETH 30 ML UDC PO PRN (00:30)
[2022-07-20] MEDS ORDERED: MAGNESIUM HYDROXIDE 30 ML UDC PO PRN (00:30)
[2022-07-20] MEDS ORDERED: Z GUARD REMEDY 4 OZ OINT TP PRN (00:30)
[2022-07-20] MEDS ORDERED: ONDANSETRON HCL/PF 4 MG/2 ML VIAL IVP PRN (00:30)
[2022-07-20] MEDS ORDERED: ACETAMINOPHEN 325 MG TABLET PO PRN (00:30)
[2022-07-20] MEDS ORDERED: ZOLPIDEM TARTRATE 5 MG TABLET PO PRN (00:30)
[2022-07-20] MEDS: MORPHINE SULFATE INJ 4 MG/ML DISP.SYRIN IV PRN ×4 (00:46→14:11)
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
[2022-07-20 06:16] LABS: BASOPHILS # (AUTO) 0.1 K/uL (0.0-0.2); BASOPHILS % (AUTO) 1.1 % (0.0-2.0); EOSINOPHILS % (AUTO) 2.9 % (0.0-6.0); HEMATOCRIT 34 % (33-45); HEMOGLOBIN 10.8 g/dL (11.5-14.8); LYMPHOCYTES # (AUTO) 1.6 K/uL (0.8-4.8); LYMPHOCYTES % (AUTO) 28.1 % (20.0-44.0); MEAN CORPUSCULAR HGB CONC 32 g/dl (31.0-36.0); MEAN CORPUSCULAR VOLUME 87 fL (82-100); MONOCYTES # (AUTO) 0.3 K/uL (0.1-1.30); MONOCYTES % (AUTO) 5.1 % (2.0-12.0); NEUTROPHILS # (AUTO) 3.5 K/uL (1.8-8.9); NEUTROPHILS % (AUTO) 62.8 % (43.0-81.0); PLATELET COUNT (AUTO) 252 K/uL (150-450); RED BLOOD CELL COUNT(AUTO) 3.87 MIL/uL (4.0-5.2); WHITE BLOOD COUNT (AUTO) 5.6 K/uL (4.3-11.0)
[2022-07-20 06:53] LABS: ALBUMIN 2.8 g/dL (3.4-5.0); BILIRUBIN,TOTAL 0.6 mg/dL (0.2-1.0); CALCIUM, SERUM 8.2 mg/dL (8.5-10.1); CREATININE 0.9 mg/dL (0.6-1.3); PHOSPHORUS 3.9 mg/dL (2.5-4.9); POTASSIUM 4.2 mmol/L (3.5-5.1); TOTAL PROTEIN, SERUM 5.7 g/dL (6.4-8.2)
--- NOTE | 2022-07-20 06:54 | NUR ---
MS RN CLOSING NOTES - PATIENT SLEEPING INTERMITTENTLY, ABLE TO VERBALIZE NEEDS. NO CARDIAC OR RESPIRATORY DISTRESS. DENIES PAIN AT THIS TIME. AFEBRILE. LEFT FOREARM IV ACCESS INTACT, PATENT AND FLUSHING. ALL DUE MEDS GIVEN AND NEEDS ATTENDED. PAIN MANAGEMENT ORDERED. SAFETY PRECAUTIONS MAINTAINED. WILL ENDORSE TO NEXT SHIFT FOR NIKITA.
[2022-07-20 07:00] VITALS: BP 103/50
--- NOTE | 2022-07-20 07:50 | NUR ---
RN OPENING NOTES RECEIVED PATIENT SLEEPING IN BED, RESPONSIVE TO VERBAL STIMULI, A/O X4. BREATHING EVEN AND NON-LABORED ON ROOM AIR. NOT IN APPARENT DISTRESS. HAS LEFT FOREARM IV ACCESS #20G WITH IV NS RUNNING AT 75 ML/HR. NO S/S OF INFILTRATION NOTED. SAFETY PRECAUTIONS IN PLACE: BED LOCKED AND IN LOW POSITION, SIDE RAILS UP X2, CALL LIGHT WITHIN REACH. WILL CONTINUE PLAN OF CARE.
[2022-07-20] MEDS ORDERED: PANTOPRAZOLE 40 MG VIAL IV SCH (09:00)
[2022-07-20] MEDS ORDERED: APIX5TAB PO (12:43)
[2022-07-20] MEDS ORDERED: CLON0.5T4 PO (12:43)
[2022-07-20] MEDS ORDERED: FURO40TA5 PO (12:43)
[2022-07-20] MEDS ORDERED: GABA-532 PO (12:43)
[2022-07-20] MEDS ORDERED: DIATR MEGLU/DIATRIZOATE SODIUM 120 ML BOTTLE (GASTROGRAPHIN) ONE (15:53)
--- NOTE | 2022-07-20 16:00 | NUR ---
RN NOTES PATIENT WAS ABOUT TO GO FOR XR SMALL BOWEL FOLLOW TROUGH PROCEDURE, HOWEVER WHEN THE IT ENGINEER WAS IN PATIENT'S ROOM TO PICK HER, PATIENT WAS REFUSING IT STATED, " I HAVE DONE THAT MANY TIMES AND I DON'T WANNA DO IT, I DO NOT WANT TO DRINK ANYTHING AND I JUST WANTED TO GO HOME. X-RAY TECH AND MYSELF EXPLAINED TO THE PATIENT RISKS AND BENEFITS OF THE PROCEDURE, ENCOURAGING PATIENT TO DO THE PROCEDURE IT WILL BENEFIT HER, HOWEVER, PATIENT KEPT ON REFUSING.
--- NOTE | 2022-07-20 17:00 | NUR ---
RN NOTES APPROACHED PATIENT TO DO THE PROCEDURE ORDERED BY MD, EXPLAINED TO PATIENT BENEFITS AND RISKS, HOWEVER PATIENT STILL KEEP ON REFUSING SAYING "I REALLY DON'T LIKE TO DO IT," MADE A THERAPEUTIC COMMUNICATION WITH THE PATIENT, EXPLORING PATIENT'S FEELINGS AND CONCERNS. PATIENT WAS VERY PLEASANT TO COMMUNICATE BUT PATIENT STILL DOES NOT WANT TO DO THE PROCEDURE AND WANTED TO GO HOME EVEN AGAINST MEDICAL ADVISE. EXPLAINED RISK AND BENEFITS.
--- NOTE | 2022-07-20 17:40 | NUR ---
RN NOTES APPROACHED AGAIN PATIENT TO DO THE PROCEDURE BUT PATIENT WANTED TO GO HOME. WILL PREPARE FOR AMA.
--- NOTE | 2022-07-20 18:30 | NUR ---
DISCHARGED NOTES PATIENT LEFT THE UNIT AGAINST MEDICAL ADVICE OR TREATMENT. PATIENT IS A/OX4, ON RA, TOLERATING WELL. PATIENT NOT IN ANY FORM OF DISTRESS, COGNITIVE, ABLE TO COMPREHEND VERY WELL. EXPLAINED TO PATIENT AGAIN RISK OF LEAVING THE HOSPITAL AGAINST MEDICAL ADVICE. PATIENT VERBALIZED FULL UNDERSTANDING. PATIENT STATED " I HAVE BEEN IN AND OUT OF THE HOSPITAL, I KNOW EXACTLY WHAT AMA MEANS AND DONE THAT BEFORE", I AM FULLY AWARE OF MY HEALTH AND I FEEL I AM ALRIGHT AND REALLY WANTED TO GO HOME. PATIENT SIGNED THE AMA AND PATIENT'S BELONGINGS FORM. EDUCATE PATIENT ABOUT HER CONDITION AND CONSEQUENCES OF GOING HOME. ADVICE PATIENT TO MAKE A FOLLOW UP WITH HER PCP SOON SHE CAN AND TO CALL 911 OR GO TO THE NEAREST HOSPITAL FOR EMERGENCY CASES. PATIENT LEFT THE UNIT VIA WHEELCHAIR ACCOMPANIED BY CARRINGTON MULLINS. CHARGE NURSE ANTONIO AND CARLITOS MCCRACKEN MADE AWARE.
[2022-07-20] MEDS ORDERED: CEFTRIAXONE 1 G in IV D5W 50 ML IV SCH ×4 (22:00)
[2022-07-23 08:06] LABS: HEPATITIS Be AB Negative (Negative)
== END 2022-07-20 18:45 | disposition left against medical advice (07) | DRG 247 ==
LOC: ER 17:10 → MED 21:59
PROVIDERS: ADMIT Nurse Practitioner Acute Care; ATTEND Registered Nurse
DX: K56.609 Unspecified intestinal obstruction, unspecified as to partial versus complete obstruction (principal); N12 Tubulo-interstitial nephritis, not specified as acute or chronic; N13.30 Unspecified hydronephrosis; N26.1 Atrophy of kidney (terminal); B96.20 Unspecified Escherichia coli [E. coli] as the cause of diseases classified elsewhere; Z85.41 Personal history of malignant neoplasm of cervix uteri; Z90.710 Acquired absence of both cervix and uterus; Z90.49 Acquired absence of other specified parts of digestive tract; Z85.038 Personal history of other malignant neoplasm of large intestine; Z92.3 Personal history of irradiation; K80.20 Calculus of gallbladder without cholecystitis without obstruction; Z98.0 Intestinal bypass and anastomosis status; K21.9 Gastro-esophageal reflux disease without esophagitis
CPT/HCPCS: 36415; 71045-TC; 80048-TC; 80053-TC; 80076-TC; 81001; 82962-TC; 83605-TC; 83690-TC; 83735-TC; 84100-TC; 84484-TC; 85025-TC; 86704; 86705; 86706; 86707; 86803; 87040-TC; 87081-TC; 87086-TC; 87340; 87350; A4223; C9113; C9803; G0378; J0696; J2270; J7030; J7060; Q9963

== ENCOUNTER → 2023-02-09 | Emergency (ER) | payer OTHER ==
[~2023-02-09] VITALS: Ht 157.5 cm; Wt 65.8 kg
[~2023-02-09] MED LIST changes: +ACETAMINOPHEN ES 500 MG TABLET ONE; +ACETAMINOPHEN ES 500 MG TABLET PO ONE; -ALPR0.25 PO; +APIX5TAB PO; +CLON0.5T4 PO; -CYAN10006 IM; -ESTR-7 PO; +FURO40TA5 PO; +GABA-532 PO; -Hydrocodone/Apap 10/325MG PO; +KETO10TA2 PO; -Levofloxacin (250MG) PO; -NAPR500T6 PO; -ONDA4TAB5 PO; -PHEN-895 PO
[2023-02-09 16:38] VITALS: TEMP 98.7
[2023-02-09 17:50] VITALS: BP 115/75
[2023-02-09 18:21] VITALS: O2SAT 97
== END | disposition home or self-care (01) ==
LOC: ER 16:29
DX: M79.601 Pain in right arm (principal); Z79.899 Other long term (current) drug therapy; Z90.49 Acquired absence of other specified parts of digestive tract
CPT/HCPCS: 73030-TC; 73080-TC; 73090-TC; 73110

== ENCOUNTER 2023-11-17 23:08 | Emergency (ER) | payer OTHER ==
[~2023-11-17] VITALS: Ht 157.5 cm; Wt 59.0 kg
[~2023-11-17 23:08] MED LIST changes: -ACETAMINOPHEN ES 500 MG TABLET ONE; -ACETAMINOPHEN ES 500 MG TABLET PO ONE
[2023-11-17] MEDS: IV NS 0.9% 1,000 ML BAG IV ONE (23:30)
[2023-11-17] MEDS ORDERED: MORPHINE SULFATE INJ 2 MG/ML DISP.SYRIN ONE (23:48)
[2023-11-17 23:53] LABS: BASOPHILS # (AUTO) 0.1 K/uL (0.0-0.2); BASOPHILS % (AUTO) 2.4 % (0.0-2.0); EOSINOPHILS # (AUTO) 0.2 K/uL (0.0-0.7); HEMATOCRIT 33 % (33-45); HEMOGLOBIN 10.6 g/dL (11.5-14.8); LYMPHOCYTES # (AUTO) 1.8 K/uL (0.8-4.8); LYMPHOCYTES % (AUTO) 28.7 % (20.0-44.0); MEAN CORPUSCULAR HEMOGLOBIN 27 PG (26.0-33.0); MEAN CORPUSCULAR HGB CONC 32 g/dl (31.0-36.0); MEAN CORPUSCULAR VOLUME 83 fL (82-100); MONOCYTES # (AUTO) 0.4 K/uL (0.1-1.30); MONOCYTES % (AUTO) 6.7 % (2.0-12.0); NEUTROPHILS # (AUTO) 3.7 K/uL (1.8-8.9); NEUTROPHILS % (AUTO) 59.2 % (43.0-81.0); PLATELET COUNT (AUTO) 307 K/uL (150-450); RED BLOOD CELL COUNT(AUTO) 3.96 MIL/uL (4.0-5.2); RED CELL DISTRIBUTION WIDTH 19.9 % (11.5-15.0); WHITE BLOOD COUNT (AUTO) 6.3 K/uL (4.3-11.0)
[2023-11-17] MEDS: MORPHINE SULFATE INJ 2 MG/ML DISP.SYRIN IV ONE (23:59)
[2023-11-18 00:02] LABS: CALCIUM, SERUM 8.5 mg/dL (8.5-10.1); CARBON DIOXIDE 26 mmol/L (21-32); CHLORIDE 106 mmol/L (98-107); CREATININE 0.9 mg/dL (0.6-1.3); GLUCOSE 79 mg/dL (74-106); SODIUM SERUM 139 mmol/L (136-145); UREA NITROGEN, BLOOD 14 mg/dL (7-18)
[2023-11-18 00:08] LABS: ALANINE AMINOTRANSFERASE 12 U/L (12-78); ALBUMIN 2.7 g/dL (3.4-5.0); ALKALINE PHOSPHATASE 80 U/L (46-116); ASPARTATE AMINOTRANSFERASE < 5 U/L (15-37); BILIRUBIN,DIRECT 0.1 mg/dL (0.0-0.2); BILIRUBIN,TOTAL 0.2 mg/dL (0.2-1.0); LIPASE 31 U/L (16-77); TOTAL PROTEIN, SERUM 6.5 g/dL (6.4-8.2)
[2023-11-18 01:19] LABS: APPEARANCE,URINE CLEAR (CLEAR); BILIRUBIN,URINE NEGATIVE (NEGATIVE); BLOOD, URINE NEGATIVE Ery/uL (NEGATIVE); COLOR,URINE YELLOW (YELLOW); KETONES,URINE NEGATIVE (NEGATIVE); LEUKOCYTE ESTERASE ,URINE NEGATIVE (NEGATIVE); NITRITE, URINE NEGATIVE (NEGATIVE); PH,URINE 5.5 (5.0-8.0); PROTEIN,URINE NEGATIVE (NEGATIVE); UGLUCOSE NEGATIVE (NEGATIVE); UROBILINOGEN,URINE 0.2 EU/dL (0.2)
[2023-11-18] MEDS ORDERED: ONDANSETRON HCL/PF 4 MG/2 ML VIAL IVP PRN (03:30)
[2023-11-18] MEDS ORDERED: ACETAMINOPHEN 325 MG TABLET PO PRN (03:30)
[2023-11-18] MEDS ORDERED: IV NS 0.9% 1,000 ML IV SCH (03:30)
[2023-11-18] MEDS ORDERED: MORPHINE SULFATE INJ 2 MG/ML DISP.SYRIN IV PRN (03:30)
[2023-11-18] MEDS ORDERED: hydrALAZINE HCL IV 20 MG VIAL IV PRN (03:30)
[2023-11-18 04:40] VITALS: BP 112/70; TEMP 98.4; O2SAT 96
[2023-11-18] MEDS ORDERED: APIXABAN 5 MG TABLET PO SCH (09:00)
[2023-11-18] MEDS ORDERED: GABAPENTIN 100 MG CAPSULE PO SCH (09:00)
== END 2023-11-18 04:42 | disposition left against medical advice (07) ==
LOC: ER 23:10
DX: K56.609 Unspecified intestinal obstruction, unspecified as to partial versus complete obstruction (principal); R10.2 Pelvic and perineal pain; Z98.890 Other specified postprocedural states; Z90.49 Acquired absence of other specified parts of digestive tract; Z79.899 Other long term (current) drug therapy; Z79.891 Long term (current) use of opiate analgesic
CPT/HCPCS: 99285; 74176; 96374; 71045; 96361; 93005; 85025; 80048; 83690; 80076; 36415; 84484; 84702; 87086; 81003; J7030; J2270

== ENCOUNTER 2023-12-24 19:15 | Emergency (ER) | payer OTHER ==
[~2023-12-24] VITALS: Ht 160 cm; Wt 83.9 kg
[2023-12-24 20:30] LABS: BASOPHILS # (AUTO) 0.1 K/uL (0.0-0.2); BASOPHILS % (AUTO) 1.4 % (0.0-2.0); EOSINOPHILS # (AUTO) 0.2 K/uL (0.0-0.7); EOSINOPHILS % (AUTO) 2.2 % (0.0-6.0); HEMATOCRIT 38 % (33-45); HEMOGLOBIN 11.9 g/dL (11.5-14.8); LYMPHOCYTES # (AUTO) 1.8 K/uL (0.8-4.8); LYMPHOCYTES % (AUTO) 22.7 % (20.0-44.0); MEAN CORPUSCULAR HEMOGLOBIN 26 PG (26.0-33.0); MEAN CORPUSCULAR HGB CONC 32 g/dl (31.0-36.0); MEAN CORPUSCULAR VOLUME 83 fL (82-100); MONOCYTES # (AUTO) 0.5 K/uL (0.1-1.30); NEUTROPHILS # (AUTO) 5.3 K/uL (1.8-8.9); NEUTROPHILS % (AUTO) 67.7 % (43.0-81.0); PLATELET COUNT (AUTO) 352 K/uL (150-450); RED BLOOD CELL COUNT(AUTO) 4.53 MIL/uL (4.0-5.2); RED CELL DISTRIBUTION WIDTH 17.8 % (11.5-15.0); WHITE BLOOD COUNT (AUTO) 7.8 K/uL (4.3-11.0)
[2023-12-24 21:07] LABS: ACETAMINOPHEN 0 ug/ml (10-30); ALANINE AMINOTRANSFERASE 14 U/L (12-78); ALBUMIN 3.5 g/dL (3.4-5.0); ALCOHOL, BLOOD < 3 mg/dL (0-10); ALKALINE PHOSPHATASE 80 U/L (46-116); ASPARTATE AMINOTRANSFERASE 11 U/L (15-37); BILIRUBIN,DIRECT 0.1 mg/dL (0.0-0.2); BILIRUBIN,TOTAL 0.4 mg/dL (0.2-1.0); CALCIUM, SERUM 9.3 mg/dL (8.5-10.1); CARBON DIOXIDE 23 mmol/L (21-32); CHLORIDE 105 mmol/L (98-107); GLUCOSE 88 mg/dL (74-106); POTASSIUM 3.6 mmol/L (3.5-5.1); SALICYLATE 7.5 mg/dL (2.8-20.0); SODIUM SERUM 137 mmol/L (136-145); TOTAL PROTEIN, SERUM 7.2 g/dL (6.4-8.2); UREA NITROGEN, BLOOD 11 mg/dL (7-18)
[2023-12-24 21:26] LABS: APPEARANCE,URINE CLEAR (CLEAR); BILIRUBIN,URINE 1+ (NEGATIVE); BLOOD, URINE NEGATIVE Ery/uL (NEGATIVE); COLOR,URINE YELLOW (YELLOW); KETONES,URINE NEGATIVE (NEGATIVE); LEUKOCYTE ESTERASE ,URINE NEGATIVE (NEGATIVE); NITRITE, URINE NEGATIVE (NEGATIVE); PH,URINE 5.5 (5.0-8.0); PROTEIN,URINE TRACE mg/dl (NEGATIVE); UGLUCOSE NEGATIVE (NEGATIVE)
[2023-12-24 21:27] LABS: PREGNANCY TEST URINE QUAL NEGATIVE (NEGATIVE)
[2023-12-24 21:32] LABS: AMPHETAMINE, URINE NEGATIVE (NEGATIVE); BARBITURATE, URINE NEGATIVE (NEGATIVE); CANNABINOID, URINE NEGATIVE (NEGATIVE); COCCAINE, URINE NEGATIVE (NEGATIVE); PHENCYCLIDINE SCREEN,URINE NEGATIVE (NEGATIVE)
[2023-12-24 21:34] LABS: BENZODIAZEPINE, URINE POSITIVE (NEGATIVE); OPIATE, URINE POSITIVE (NEGATIVE)
[2023-12-24 21:36] LABS: ADD URINE CULTURE NO; BACTERIA,URINE None seen /HPF (None Seen); MUCUS,URINE Many /LPF (None Seen); RBC,URINE 0-2 /HPF (0-2); WBC,URINE 0-2 /HPF (0-3)
[2023-12-24] MEDS ORDERED: HYDROCODONE/APAP 10/325MG TABLET ONE (22:28)
[2023-12-24] MEDS: HYDROCODONE/APAP 10/325MG TABLET PO ONE (22:33)
[2023-12-25 00:25] VITALS: BP 122/81; TEMP 98.9; O2SAT 98
== END 2023-12-25 00:25 | disposition home or self-care (01) ==
LOC: ER 19:29
DX: R45.851 Suicidal ideations (principal); F41.1 Generalized anxiety disorder; F32.A Depression, unspecified; F41.0 Panic disorder [episodic paroxysmal anxiety]; Z86.79 Personal history of other diseases of the circulatory system; Z87.19 Personal history of other diseases of the digestive system; Z87.42 Personal history of other diseases of the female genital tract; Z85.41 Personal history of malignant neoplasm of cervix uteri; Z85.038 Personal history of other malignant neoplasm of large intestine; Z90.711 Acquired absence of uterus with remaining cervical stump; Z98.84 Bariatric surgery status; Z20.822 Contact with and (suspected) exposure to COVID-19
CPT/HCPCS: 36415; 80048-TC; 80076-TC; 81001; 84703-TC; 85025-TC; G0480